=== PATIENT | female | born 1960 | race Caucasian/White ===

== ENCOUNTER 2020-08-12 09:54 | Outpatient (REF) | payer OTHER, SELFPAY ==
[2020-08-12 13:50] LABS: MANUAL DIFF FLAG NO
[2020-08-12 13:56] LABS: Eosinophils Absolute Auto 0.6 X10*3/uL (0.0-0.4); Eosinophils Percent Auto 15.7 % (0-4); Hematocrit 45.4 % (37-47); Hemoglobin 14.7 g/dl (12.0-16.0); Imm Gran Abs Auto 0.02 X10*3/uL (0.00-0.03); Imm Gran Pct Auto 0.5 % (0.0-0.4); Lymphocytes Absolute Auto 1.3 X10*3/uL (1.2-4.9); Lymphocytes Percent Auto 31.9 % (20-40); Mean Corpuscular HGB Conc 32.4 g/dl (31.0-35.0); Mean Corpuscular Hemoglobin 29.9 pg (27.0-33.0); Mean Corpuscular Volume 92.3 fL (80-98); Mean Platelet Volume 9.8 fL (9.4-12.3); Monocytes Absolute Auto 0.4 X10*3/uL (0.1-1.2); Monocytes Percent Auto 8.7 % (2-11); Neutrophils Absolute Auto 1.7 X10*3/uL (2.0-8.3); Neutrophils Percent Auto 42.2 % (45-73); Platelet Count 215 X10*3/uL (160-400); Red Blood Count 4.92 X10*6/uL (4.20-5.50); Red Cell Distribution Width 12.4 % (11.0-16.0)
[2020-08-12 14:21] LABS: Alanine Aminotransferase 46 U/L (0-31); Anion Gap 13 (12-20); Aspartate Amino Transferase 38 U/L (5-31); Blood Urea Nitrogen 17 mg/dL (9-16); Calcium 8.5 mg/dL (8.4-10.2); Carbon Dioxide 25 mmol/L (22-29); Chloride 106 mmol/L (96-108); Cholesterol 305 mg/dL; Estimated Glomerular Filt Rate 57; Glucose Fasting 88 mg/dL (60-99); HDL Cholesterol 62 mg/dL; LDL Cholesterol Calculated 202 mg/dl; Potassium 4.2 mmol/L (3.3-5.1); Sodium 140 mmol/L (135-145); Triglycerides 209 mg/dL
[2020-08-12 14:42] LABS: TSH reflex Free T4 2.24 uIU/mL (0.32-4.0); Vitamin D 25-OH Total 26.3 ng/mL (>30)
== END 2020-08-12 09:55 | disposition home or self-care (01) ==
LOC: HO.10HDL 09:54
PROVIDERS: Visit Provider Internal Medicine
DX: Z00.01 Encounter for general adult medical examination with abnormal findings (principal); F33.42 Major depressive disorder, recurrent, in full remission; F51.01 Primary insomnia; I10 Essential (primary) hypertension; Z78.0 Asymptomatic menopausal state
CPT/HCPCS: 36415; 80048; 80061; 82306; 84443; 84450; 84460; 85025

== ENCOUNTER 2020-10-28 12:10 | Outpatient (REF) | payer OTHER, SELFPAY ==
[2020-10-28 14:30] LABS: Alanine Aminotransferase 25 U/L (0-31); Aspartate Amino Transferase 20 U/L (5-31); Cholesterol 191 mg/dL; HDL Cholesterol 73 mg/dL; LDL Cholesterol Calculated 93 mg/dl; Triglycerides 128 mg/dL
[2020-10-28 14:40] LABS: Vitamin D 25-OH Total 54.8 ng/mL (>30)
== END 2020-10-28 12:11 | disposition home or self-care (01) ==
LOC: HO.HMGCLDS 12:10
PROVIDERS: PCP Internal Medicine; Visit Provider Internal Medicine
DX: E78.2 Mixed hyperlipidemia (principal); E55.9 Vitamin D deficiency, unspecified; Z78.0 Asymptomatic menopausal state
CPT/HCPCS: 36415; 80061; 82306; 82550; 84450; 84460

== ENCOUNTER → 2020-11-25 11:18 | Outpatient (BNVA) | payer OTHER, SELFPAY | PROVIDERS: PCP Internal Medicine; Referring Provider Internal Medicine; Visit Provider Nurse Practitioner ==

== ENCOUNTER 2021-01-02 07:50 | Day surgery (SDC) | payer OTHER, SELFPAY ==
--- NOTE | 2021-01-01 10:36 | P.CONAN_ITS ---
Documented by User: Renu Farr NP 01/01/21 10:37 HPI - Anesthesia Eval Consult details Narrative: 60yo F for Colonoscopy PMFSH Active Problems Active Problems: All Active Problems (Updated 11/25/20 @ 11:27 by HEATHER Raphael) Encounter for screening for malignant neoplasm of colon (Acute) Vaginal cyst (Acute) LGSIL (low grade squamous intraepithelial dysplasia) (Acute) Post-menopause (Acute) Vitamin D deficiency (Acute) Mixed dyslipidemia (Acute) Rosacea (Acute) Menopausal symptoms (Acute) Insomnia (Acute) Depression (Acute) Past Medical History Medical History Depression Insomnia LGSIL (low grade squamous intraepithelial dysplasia) Menopausal symptoms Mixed dyslipidemia Post-menopause Rosacea Shift work sleep disorder Vaginal cyst Vitamin D deficiency Family History Family History Father Dementia CVA (cerebral vascular accident) Maternal Grandmother Diabetes mellitus Paternal Grandfather Diabetes mellitus Breast cancer Paternal Grandmother Breast cancer Diabetes mellitus Surgical History Surgical History H/O tubal ligation History of section History of nasal septoplasty History of rhinoplasty Hx of colonoscopy Social History Social History Alcohol intake: former Patient Tobacco Use Status: Never used Tobacco Use of substances other than those prescribed or required for medical reasons: No Are you DNR?: No Advance Directives: No Advance Directives Information Provided: Yes Meds Allergies Allergy/AdvReac Type Severity Reaction Status Date / Time No Known Allergies Allergy Verified 01/02/21 08:41 Home Medications Medication Instructions Recorded Confirmed Last Taken Type flu vacc [id number] 6mos up(PF) ml IM 05/05/20 08/21/20 Unknown History varicella-zoster glycoE [id number] IM 05/05/20 08/21/20 Unknown History adj(PF) 50 mcg/0.5 mL IM susp, kit Exam Exam Date and Time: January 01, 2021 1036 Pertinent Lab Results Pertinent Lab Results: Laboratory Tests 08/12/20 08/12/20 10:00 10:00 WBC 4.0 L Hgb 14.7 Hct 45.4 Plt Count 215 Sodium 140 Potassium 4.2 Chloride 106 Carbon Dioxide 25 BUN 17 H Creatinine 0.99 Assessment and Plan Assessment Anesthesia Assessment: Chart Reviewed Documented by User: Juli Fontana MD 01/02/21 09:28 [facility] Past Medical History Medical History Depression Insomnia LGSIL (low grade squamous intraepithelial dysplasia) Menopausal symptoms Mixed dyslipidemia Post-menopause Rosacea Shift work sleep disorder Vaginal cyst Vitamin D deficiency Family History Family History Father Dementia CVA (cerebral vascular accident) Maternal Grandmother Diabetes mellitus Paternal Grandfather Diabetes mellitus Breast cancer Paternal Grandmother Breast cancer Diabetes mellitus Surgical History Surgical History H/O tubal ligation History of section History of nasal septoplasty History of rhinoplasty Hx of colonoscopy History of Problems with Anesthesia: No Social History Social History Alcohol intake: former Patient Tobacco Use Status: Never used Tobacco Use of substances other than those prescribed or required for medical reasons: No Are you DNR?: No Advance Directives: No Advance Directives Information Provided: Yes Meds Allergies Allergy/AdvReac Type Severity Reaction Status Date / Time No Known Allergies Allergy Verified 01/02/21 08:41 Home Medications Medication Instructions Recorded Confirmed Last Taken Type flu vacc [id number] 6mos up(PF) ml IM 05/05/20 08/21/20 Unknown History varicella-zoster glycoE [id number] IM 05/05/20 08/21/20 Unknown History adj(PF) 50 mcg/0.5 mL IM susp, kit Exam Airway Mallampati Class: II TM Dist: >3cm Neck ROM: Full Loose/Missing/Broken Teeth: No Heart: RRR Lungs: CTA Assessment and Plan Assessment Anesthesia Assessment: Anesthesia Plan Discussed Final Anesthetic Review History of Problems with Anesthesia: No NPO: Yes ASA Class: II Final Preanesthetic Review: Meds/Allgs Chart Reviewed, Consent Obtained/Reviewed and Anes Risks/Benef Reviewed Patient Risk: Low Procedure Risk: Low Anesthetic Plan Anesthetic Plan: MAC: Disposition: Standard PACU
[2021-01-02] MEDS: Lactated Ringers 1,000 ML 100 ML IVCONT (08:34)
[2021-01-02 08:35] VITALS: BP 133/67; PULSE 64; RESP 18; TEMP 36.7; O2SAT 97; BMI 24.0
--- NOTE | 2021-01-02 08:55 | P.HPSUR_ITS ---
Pre-Procedural Eval Section A Date of Service: 01/02/21 The patient is an INPATIENT: No The History & Physical has been completed within 30 days and I have reviewed it.: No Section B Chief Complaint: Screening Details of Present Illness: Colon cancer screening, abdominal pain, constipation Relevant Family History (Specify if Yes): No Relevant Social History: None Present Medications: see Short Stay Collaborative assessment Medical History: Significant History (Depression Insomnia LGSIL (low grade squamous intraepithelial dysplasia) Menopausal symptoms Mixed dyslipidemia Post- menopause Rosacea Shift work sleep disorder Vaginal cyst Vitamin D deficiency) History of Previous Operations: Relevant previous surgery/procedure and date(s) (H/O tubal ligation History of section History of nasal septoplasty History of rhinoplasty) Allergies: Allergies Allergy/AdvReac Type Severity Reaction Status Date / Time No Known Allergies Allergy Verified 01/02/21 08:41 Review of Systems Sugical H&P ROS: Negative: Constitution, Cardiovascular and Respiratory and Yes, Specify: Gastrointestinal (abdominal pain, constipation) Exam Surgical H&P Exam: Normal: Heart, Normal: Lungs and Normal: Extremities Plan Diagnosis/Plan: Unchanged I have reviewed the history and physical and performed a pertinent physical examination on my patient. No changes have occurred unless specified.
--- NOTE | 2021-01-02 09:29 | PM.OP ---
Brief Operative Note Date of Service: 01/02/21 Pre-op diagnosis: Colon cancer screening, abdominal pain, constipation Post-op diagnosis: other (Colon polyps, diverticulosis, hemorrhoids.) Procedure: COLONOSCOPY TILL CECUM WITH BIOPSIES, SNARE POLYPECTOMY AND SUBMUCOSAL INJECTION Consent: Indications for the procedure and potential complications of bleeding, perforation, reaction to medications and missed diagnosis were discussed with the patient and informed consent was obtained. Instrument: Olympus PCF H 190 L variable stiffness pediatric colonoscope Monitoring: Vital signs and clinical assessment, intermittent blood pressure monitoring, continuous EKG monitoring, Pulse oximetry and Carbon Dioxide monitoring were done throughout the procedure. Colon withdrawl time was 30 minutes. Procedure: The patient was placed in the left lateral decubitis position and pre-procedure medications were administered. After a digital rectal examination of the ano-rectum, the video colonoscope was inserted into the rectum and advanced through the colon to the cecum. The colonoscope was slowly withdrawn in a retrograde panoramic fashion and the colon mucosa was carefully examined including a retroflexed view of the rectum. Findings and interventions are described below. Procedure Difficulty: Colon was long and tortuous and there was spasm and recurrent loop formation. No maneuvers were required Findings: Terminal Ileum: Multiple attempts to intubate the TI were unsuccessful Cecum: Patchy erythema with scatters 2-3 mm aphthoid ulcers in the cecum and proximal AC - random biopsies were obtained. Ascending Colon: A 12-15 mm flat polyp raised with 6 cc of Orise solution and removed with a hot snare. Patchy erythema with scatters 2-3 mm aphthoid ulcers in the cecum and proximal AC - random biopsies were obtained. Transverse Colon: A 3-4 mm sessile polyp removed with cold biopsy. A 10 cms sessile polyp removed with a cold snare. Descending Colon: Moderate divertiuclosis Sigmoid Colon: Two 10-15 mm sessile polyps removed with a hot snare. Moderate diverticulosis Rectum: Normal Ano-rectum: Small internal hemorrhoids and hypertrophied anal papillae Colon preparation: Good after copious irrigation Impression and Post Procedure Diagnosis: Colonoscopy Findings: Five small to medium sized polyps removed Patchy erythema with scatters 2-3 mm aphthoid ulcers in the cecum and proximal AC - random biopsies were obtained from the right and left colon. Moderate diverticulosis seen in the left colon Small hemorrhoids on retroflexed exam. Plan: Await pathology results Patient has an appointment on 01/16/21 in the [facility] with Jessica Galvez NP. Repeat Colonoscopy interval based on path results - in 3-5 years if polyps are adenomatous and 10 years if polyps are hyperplastic. Above findings were reviewed with the patient and colon polyps and diverticulosis handouts were given in the discharge area Surgeon: Raji Stewart MD Anesthesia: MAC (Gaye Sheriff CRNA) Was an Corporate Training Manager used for this Procedure?: Yes Corporate Training Manager: Dorothea Araujo Estimated blood loss (mL): 0 Pathology: other (A. transverse colon polyps B. random right colon biopsies, R/O irritable bowel disease (IBD) C. ascending colon polyp with Orise D. sigmoid polyps E. random left colon, R/O IBD) Condition: stable Disposition: PACU
--- NOTE | 2021-01-02 09:51 | W.PM.OPN ---
Operative Note Operative Note Date of Service: 01/02/21 Narrative: Pre-op diagnosis:?Colon cancer screening, abdominal pain, constipation Post-op diagnosis:?other (Colon polyps, diverticulosis, hemorrhoids.) Procedure:? COLONOSCOPY TILL CECUM WITH BIOPSIES, SNARE POLYPECTOMY AND SUBMUCOSAL INJECTION Consent: Indications for the procedure and potential complications of bleeding, perforation, reaction to medications and missed diagnosis were discussed with the patient and informed consent was obtained. Instrument: Olympus PCF H 190 L variable stiffness pediatric colonoscope Monitoring: Vital signs and clinical assessment, intermittent blood pressure monitoring, continuous EKG monitoring, Pulse oximetry and Carbon Dioxide monitoring were done throughout the procedure. Colon withdrawl time was 30 minutes. Procedure: The patient was placed in the left lateral decubitis position and pre-procedure medications were administered. After a digital rectal examination of the ano-rectum, the video colonoscope was inserted into the rectum and advanced through the colon to the cecum. The colonoscope was slowly withdrawn in a retrograde panoramic fashion and the colon mucosa was carefully examined including a retroflexed view of the rectum. Findings and interventions are described below. Procedure Difficulty:? Colon was long and tortuous and there was spasm and recurrent loop formation.? No maneuvers were required Findings: Terminal Ileum: Multiple attempts to intubate the TI were unsuccessful Cecum:? Patchy erythema with scatters 2-3 mm aphthoid ulcers in the cecum and proximal AC - random biopsies were obtained. Ascending Colon:? A 12-15 mm flat polyp raised with 6 cc of Orise solution and removed with a hot snare.? Patchy erythema with scatters 2-3 mm aphthoid ulcers in the cecum and proximal AC - random biopsies were obtained. Transverse Colon:? A 3-4 mm sessile polyp removed with cold biopsy.? A 10 cms sessile polyp removed with a cold snare. Descending Colon:? Moderate divertiuclosis Sigmoid Colon:? Two 10-15 mm sessile polyps removed with a hot snare. Moderate diverticulosis Rectum:? Normal Ano-rectum:? Small internal hemorrhoids and hypertrophied anal papillae Colon preparation:? Good after copious irrigation Impression and Post Procedure Diagnosis: Colonoscopy Findings: Five small to medium sized polyps removed ?Patchy erythema with scatters 2-3 mm aphthoid ulcers in the cecum and proximal AC - random biopsies were obtained from the right and left colon. Moderate diverticulosis seen in the left colon Small hemorrhoids on retroflexed exam. Plan: Await pathology results Patient has an appointment on 01/16/21 in the GI Clinic with? Jessica Galvez NP. Repeat Colonoscopy interval based on path results - in 3-5 years if polyps are adenomatous and 10 years if polyps are hyperplastic. Handouts on colon polyps and diverticulosis were given in the discharge area Surgeon:?Raji Stewart MD Anesthesia:?MAC (Gaye Sheriff CRNA) Was an Field Crop Farm Worker used for this Procedure?:?Yes Field Crop Farm Worker:?Dorothea Araujo Estimated blood loss (mL):?0 Pathology:?other (A. transverse colon polyps? B. random right colon biopsies, R/O irritable bowel disease (IBD)? C. ascending colon polyp with Orise? D. sigmoid polyps? E. random left colon, R/O IBD) Condition:?stable Disposition:?PACU
[2021-01-02 10:46] VITALS: BP 105/72; PULSE 62; RESP 14; TEMP 36.6; O2SAT 96
[2021-01-02 11:01] VITALS: BP 121/42; PULSE 76; RESP 16; TEMP 36.6; O2SAT 97
== END 2021-01-02 11:36 | disposition home or self-care (01) ==
PROVIDERS: PCP Internal Medicine; Visit Provider Internal Medicine Gastroenterology
PROC: 0DJD8ZZ Inspection of Lower Intestinal Tract, Via Natural or Artificial Opening Endoscopic (ICD-10-PCS; CPT 45378; principal; 2021-01-02 13:20)
DX: Z12.11 Encounter for screening for malignant neoplasm of colon (principal); D12.2 Benign neoplasm of ascending colon; D12.3 Benign neoplasm of transverse colon; D12.5 Benign neoplasm of sigmoid colon; K52.9 Noninfective gastroenteritis and colitis, unspecified; K57.30 Diverticulosis of large intestine without perforation or abscess without bleeding; K64.8 Other hemorrhoids; K56.2 Volvulus; K59.00 Constipation, unspecified
CPT/HCPCS: 45385; 45380; 45381; 88305

== ENCOUNTER → 2021-07-10 09:20 | Outpatient (BNVA) | payer OTHER, SELFPAY | PROVIDERS: PCP Internal Medicine; Referring Provider Internal Medicine; Visit Provider Nurse Practitioner | DX: Z13.89 Encounter for screening for other disorder (principal) ==

== ENCOUNTER 2021-08-18 10:54 | Outpatient (REF) | payer OTHER, SELFPAY ==
[2021-08-18 14:31] LABS: Alanine Aminotransferase 14 U/L (0-31); Anion Gap 10 (12-20); Aspartate Amino Transferase 18 U/L (5-31); Blood Urea Nitrogen 13 mg/dL (9-16); Carbon Dioxide 27 mmol/L (22-29); Chloride 107 mmol/L (96-108); Cholesterol 169 mg/dL; Estimated Glomerular Filt Rate > 60; Glucose Fasting 88 mg/dL (60-99); HDL Cholesterol 67 mg/dL; LDL Cholesterol Calculated 84 mg/dl; Potassium 4.1 mmol/L (3.3-5.1); Sodium 140 mmol/L (135-145); Triglycerides 92 mg/dL
[2021-08-18 14:43] LABS: Vitamin D 25-OH Total 51.9 ng/mL (>30)
== END 2021-08-18 10:55 | disposition home or self-care (01) ==
LOC: HO.HMGCLDS 10:54
PROVIDERS: PCP Internal Medicine; Visit Provider Internal Medicine
DX: Z00.00 Encounter for general adult medical examination without abnormal findings (principal); E55.9 Vitamin D deficiency, unspecified; E78.2 Mixed hyperlipidemia; N95.1 Menopausal and female climacteric states
CPT/HCPCS: 36415; 80048; 80061; 82306; 84450; 84460

== ENCOUNTER 2023-05-24 11:54 | Outpatient (AMB) | payer OTHER, SELFPAY ==
--- NOTE | 2023-05-24 12:19 | A.OFFPC_ITS ---
Vital Signs 05/24/23 12:27 Height 5 ft 4 in Weight 162 lb BMI 27.8 BP 110/70 Blood Pressure Location Rt brachial Pulse 78 Pulse Source Pulse Oximeter Pulse Oximetry (%) 97 Oxygen Delivery Method Room Air Intake Visit Reasons: PHY Allergies Seasonal Allergies Allergy (Intermediate, Verified 05/24/23 12:54) Congestion Medication List - Last Reconciled 05/24/23 by Adenike Alvarez MD bupropion HCl 300 mg PO QAM citalopram 40 mg PO DAILY estradiol 0.5 mg PO DAILY progesterone micronized 100 mg PO BEDTIME rosuvastatin 5 mg PO DAILY 90 days Tobacco use date assessed: 05/24/23 Last assessed Fall Risk: 05/24/23 Dental Screening Dental Screen Date: 05/24/23 Did you have a dental visit in the last 12 months?: Yes Did you have a dental problem in the last 6 months where you did not have access to dental care?: Yes Was dental information given to patient?: Patient has dentist TOM HANCOCK HPI Details 63-year-old lady here today for her phys ical exam. She sees Dr. Mari Nair at [facility], who has been treating her postmenopausal vasomotor symptoms with hormonal therapy. She had cervical cancer screening done at [facility] 10/21/2021 which showed low-grade squamous intraepithelial lesion and positive HPV, overdue for a repeat Pap. Patient states she will call their office and schedule another appointment. Her last mammogram was done 11/17/2021 which showed negative findings. Patient also states that she will call and schedule appointment for her screening mammogram.. Has not had a bone density scan done, will check with her OB if this can be ordered together with her mammogram. She had a screening colonoscopy done by by Dr. Stewart 01/02/2021 with removal of 2 tubular adenoma polyps, repeat screening colonoscopy due December 2023. She has depression stable and controlled on bupropion and citalopram, takes lorazepam as needed. Takes rosuvastatin for hyperlipidemia. Complaining of difficulty with losing weight, has gained approximately 20 lb in the last 2 years, despite being healthy diet and exercising regularly, constantly on the go at work. Wants help with losing weight. [facility] Medical History (Updated 05/25/23 @ 04:04 by Adenike Alvarez MD) Vaginal cyst LGSIL (low grade squamous intraepithelial dysplasia) Post-menopause Vitamin D deficiency Mixed dyslipidemia Rosacea Menopausal symptoms Shift work sleep disorder Insomnia Depression Surgical History Hx of colonoscopy H/O tubal ligation History of nasal septoplasty History of rhinoplasty History of section Family History Father Dementia CVA (cerebral vascular accident) Maternal Grandmother Diabetes mellitus Paternal Grandfather Diabetes mellitus Breast cancer Paternal Grandmother Breast cancer Diabetes mellitus Social History Housing: Apartment Alcohol intake: former Patient Tobacco Use Status: Never used Tobacco e-Cigarette/Vaping Use: Never Used service: No Current occupational status: employed Cognitive needs: No Hearing needs: No Vision needs: No Questionnaire PHQ-9 Over the last 2 weeks, how often have you been bothered by any of the following problems? 1. Little interest or pleasure in doing things: not at all 2. Feeling down, depressed, or hopeless: not at all 3. Trouble falling or staying asleep, or sleeping too much: not at all 4. Feeling tired or having little energy: not at all 5. Poor appetite or overeating: not at all 6. Feeling bad about yourself - or that you are a failure or have let yourself or your family down: not at all 7. Trouble concentrating on things, such as reading the newspaper or watching television: not at all 8. Moving or speaking so slowly that other people could have noticed. Or the opposite - being so fidgety or restless that you have been moving around a lot more than usual: not at all 9. Thoughts that you would be better off or of hurting yourself in some way: not at all Total score: 0 Depression Screening Interpretation: Negative Depression Screening Done: Yes 96466 - PHQ-9 Billing: Yes Source: Developed by Drs. Jt David, Stephanie Aguilar, Estevan Ham and colleagues, with an educational darlene from [employer]. Thrive Questionnaire Date Thrive assessed: 05/24/23 I am a: Patient What is your living situation today?: I have a steady place to live Within the past 12 months, did the food you bought not last and you didn't have the money to get more?: Never true Within the past 12 months, did you worry whether your food would run out before you got money to buy more?: Never true Do you have trouble paying for medicines?: No Do you have trouble getting transportation to medical appointments?: No Do you have trouble paying your heating and electricity bill?: No Do you have trouble taking care of your child, family member or friend?: No Do you have trouble with day-to-day activities such as bathing, preparing meals, shopping, managing finances, etc.?: No Are you currently unemployed and looking for a job?: No Are you interested in more education?: No THRIVE Score: 0 ZURDO-7 AMB Questionnaire ZURDO-7 Date ZURDO - 7 assessed: 05/24/23 Feeling nervous, anxious, or on edge: 1 = Several days Not being able to stop or control worryin = Not at all Worrying too much about different things: 1 = Several days Trouble relaxin = More than half the days Being so restless that it is hard to sit still: 0 = Not at all Becoming easily annoyed or irritable: 0 = Not at all Feeling afraid as if something awful might happen: 0 = Not at all Total ZURDO-7 score (0-4 normal; 5-9 mild; 10-14 moderate; 15-21 severe): 4 Source: Developed by Drs. Jt David, Stpehanie Aguilar, Estevan Ham and colleagues, with an educational darlene from [employer]. ZURDO-7 Assessment Billing ZURDO-7 Assessment Tool: ZURDO-7 Assessment 90794 Review of Systems Const Denies fever(s), Denies night sweats and Denies poor appetite Eyes Reports requires corrective lenses ENT Reports no additional complaints Card Denies chest pain, Denies lightheadedness and Denies dyspnea Resp Denies cough and Denies dyspnea GI Denies abdominal pain, Denies melena, Denies bloating, Denies change in bowel h abits and Denies heartburn Reports no additional complaints Musc Denies joint swelling, Denies muscle cramps and Reports stiffness Skin/Breast Denies breast pain, Denies breast mass, Denies pruritus, Denies lesions and Denies rash Neuro Reports no additional complaints Psych Reports as per HPI Endo Reports no additional complaints Primo/Lymph Reports no additional complaints Aller/Immun Reports no additional complaints Physical exam (Primary Care) Vital Signs: Last Vital Signs Pulse 78 05/24/23 12:27 BP 110/70 05/24/23 12:27 Pulse Ox 97 05/24/23 12:27 Oxygen Delivery Method Room Air 05/24/23 12:27 BMI result Body Mass Index 27.8 Tobacco/Smoking Status: Tobacco use Status Tobacco use date assessed 05/24/23 05/24/23 12:20 Patient Tobacco Use Status Never used Tobacco 05/24/23 12:20 e-Cigarette/Vaping Use Never Used 05/24/23 12:20 PHQ-9: PHQ-9 Score PHQ-9: Total score 0 05/24/23 13:20 Depression Screening Interpretation: Negative Thrive Assessment: Date of Thrive Assessment Date Thrive assessed 05/24/23 05/24/23 12:29 Const Other: Alert oriented x3, no acute distress noted ambulatory with normal gait Orientation/consciousness: patient oriented x3 HENMT Ears: TM's normal bilaterally and EAC's normal General nose exam: Normal external nose present and No nasal discharge present Face and sinus: Yes face symmetric Eyes General: appearance normal, both eyes and all related structures Neck Neck: Yes full ROM, Yes no lymphadenopathy and Yes supple Chest Chest palpation & inspection: normal inspection of the chest Breast/axilla palpation: normal palpation of the breasts Resp Effort & Inspection: normal respiratory effort and able to speak in complete sentences Auscultation: clear to auscultation bilaterally Cardio Other: S1-S2 present regular rate and rhythm Bruits: no abdominal aortic bruits GI Palpation (GI): No Abdominal aortic bruit present, Soft to palpation, nontender, no guarding and no masses Auscultation: normal bowel sounds Other: Goes to [facility] for routine Pap and pelvic exam General: Yes no CVA tenderness Back/Spine/Pelvis Back: no CVA tenderness and No back tenderness Skin Other: Sees dermatology yearly for skin exam General skin exam: no rashes or lesions noted Neuro General: patient oriented x3, gait normal, tone normal, moves all extremities, Normal light touch and pain sensation, no focal motor deficits and CN's II-XI intact bilaterally Extrem General: Yes full ROM, Yes no joint enlargement, Yes no pedal edema, Yes no calf tenderness and Yes normal gait Psych Appearance: grossly normal and well kempt Mental Status: mental status grossly normal Speech and movement: Normal speech and movement present Affect: normal affect Attitude: cooperative Thought process: Normal thought process present Thought content: Normal thought content present Assessment and Plan Assessment & Plan (1) Annual visit for general adult medical examination with abnormal findings: Code(s): Z00.01 - Encounter for general adult medical examination with abnormal findings Plan: Will check appropriate labs. Continue with regular dental visit every 6 months and regular eye exams, at least every 2 years. Take adequate calcium in diet and vitamin-D 3 at 2000 IU per cap once a day, in addition to weight-bearing exercises to help maintain good muscle tone and weight control. Instructed to do self-breast exam, and get yearly mammogram, patient states will schedule appointment. Up-to-date with her screening colonoscopy due again later this year, sees Dr. Stewart . Patient also reminded to call her OB to schedule appointment for repeat Pap/pelvic exam. Up-to-date with her vaccination (2) Mixed dyslipidemia: Code(s): E78.2 - Mixed hyperlipidemia Plan: Fasting lipid panel ordered, currently on rosuvastatin 5 mg daily (3) Vitamin D deficiency: Code(s): E55.9 - Vitamin D deficiency, unspecified Plan: Check vitamin-D low (4) Depression: Code(s): F32.9 - Major depressive disorder, single episode, unspecified Qualifiers: Active/Remission status: in full remission Depression Type: major depressive disorder Major depression recurrence: recurrent Qualified Code(s): F33.42 - Major depressive disorder, recurrent, in full remission Plan: Currently on bupropion and citalopram with depression and anxiety controlled on present treatment (5) Tubular adenoma of colon: Comment: 01/02/[address] Stewart - 2 TA is repeat in 3 years (2023) Code(s): D12.6 - Benign neoplasm of colon, unspecified Plan: Repeat screening colonoscopy due later this year (6) Rosacea: Comment: Seen by dermatology, declines treatment at present Code(s): L71.9 - Rosacea, unspecified Plan: Followed by dermatology for routine skin exam (7) Weight gain: Code(s): R63.5 - Abnormal weight gain Plan: Trial of phentermine 15 mg per tablet to take 1 tablet at least 2 hours after breakfast. Reinforced importance of following a healthy diet and getting regular exercise at least 30 minutes of cardio 3 to 4 times a week follow-up in 4 weeks after starting phentermine (8) Fear of flying: Code(s): F40.243 - Fear of flying Plan: Prescription sent for lorazepam 0.5 mg to take 1 tablet at least 30 minutes to an hour prior to boarding plane Orders: Orders Vitamin D 25-OH Total 05/24/23 E55.9 - Vitamin D deficiency, unspecified, E78.2 - Mixed hyperlipidemia, F32.9 - Major depressive disorder, single episode, unspecified Basic Metabolic Panel Fasting 05/24/23 E55.9 - Vitamin D deficiency, unsp ecified, E78.2 - Mixed hyperlipidemia, F32.9 - Major depressive disorder, single episode, unspecified Medications: New lorazepam 0.5 mg PO DAILY PRN 5 tabs 0RF anxiety with flying phentermine must administer 2 hours after breakfast 15 mg PO DAILY 30 caps 0RF Coding Level of Care Code Est Pt Prev Care 40-64y(31659) Diagnoses Annual visit for general adult medical examination with abnormal findings Z00.01 Mixed dyslipidemia E78.2 Vitamin D deficiency E55.9 Recurrent major depressive disorder, in full remission F33.42 Active/Remission status: in full remission Depression Type: major depressive disorder Major depression recurrence: recurrent Tubular adenoma of colon D12.6 Rosacea L71.9 Weight gain R63.5 Fear of flying F40.243 Additional Codes ZURDO-7 Assessment Billing - ZURDO-7 Assessment Tool: ZURDO-7 Assessment 03529 ([id number])
[2023-05-24 12:27] VITALS: BP 110/70; PULSE 78; O2SAT 97; BMI 27.8
== END 2023-05-24 13:50 | disposition home or self-care (01) ==
PROVIDERS: PCP Internal Medicine; Visit Provider Internal Medicine
DX: Z00.00 Encounter for general adult medical examination without abnormal findings (principal); E78.2 Mixed hyperlipidemia; E55.9 Vitamin D deficiency, unspecified; F33.42 Major depressive disorder, recurrent, in full remission; D12.6 Benign neoplasm of colon, unspecified; L71.9 Rosacea, unspecified; R63.5 Abnormal weight gain; F40.243 Fear of flying
CPT/HCPCS: 99396

== ENCOUNTER 2023-05-26 10:12 | Outpatient (REF) | payer OTHER, SELFPAY ==
[2023-05-26 13:56] LABS: Alanine Aminotransferase 26 U/L (0-31); Anion Gap 10 (12-20); Aspartate Amino Transferase 22 U/L (5-31); Blood Urea Nitrogen 12 mg/dL (9-16); Calcium 8.8 mg/dL (8.4-10.2); Carbon Dioxide 28 mmol/L (22-29); Chloride 107 mmol/L (96-108); Cholesterol 185 mg/dL (<200); Estimated Glomerular Filt Rate 52; Glucose Fasting 86 mg/dL (60-99); HDL Cholesterol 72 mg/dL (>40); LDL Cholesterol Calculated 92 mg/dL (<100); Potassium 3.8 mmol/L (3.3-5.1); Sodium 141 mmol/L (135-145); Triglycerides 109 mg/dL (<150)
[2023-05-26 13:59] LABS: Vitamin D 25-OH Total 75.4 ng/mL (>30)
== END 2023-05-26 10:13 | disposition home or self-care (01) ==
LOC: HO.HMGCLDS 10:12
PROVIDERS: PCP Internal Medicine; Visit Provider Internal Medicine
DX: E78.2 Mixed hyperlipidemia (principal); E55.9 Vitamin D deficiency, unspecified; F32.9 Major depressive disorder, single episode, unspecified
CPT/HCPCS: 36415; 80048; 80061; 82306; 84450; 84460

== ENCOUNTER 2023-09-27 09:49 | Outpatient (AMB) | payer OTHER, SELFPAY ==
[2023-09-27 10:51] VITALS: BP 120/78; PULSE 68; O2SAT 97; BMI 27.6
--- NOTE | 2023-09-27 10:51 | A.OFFPC_ITS ---
Vital Signs 09/27/23 10:51 Height 5 ft 4 in Weight 161 lb BMI 27.6 BP 120/78 Blood Pressure Location Lt brachial Position Sitting Pulse 68 Pulse Source Pulse Oximeter Pulse Oximetry (%) 97 Oxygen Delivery Method Room Air Intake Visit Reasons: weight in Intake Note: F/U weigh in Allergies Seasonal Allergies Allergy (Intermediate, Verified 09/27/23 11:05) Congestion Medication List - Last Reconciled 09/27/23 by Adenike Alvarez MD bupropion HCl XL 300 mg PO QAM citalopram 40 mg PO DAILY estradiol 0.5 mg PO DAILY phentermine 15 mg PO DAILY progesterone micronized 100 mg PO BEDTIME rosuvastatin 5 mg PO DAILY 90 days Tobacco use date assessed: 09/27/23 Fall risk assessment: 2 + Falls in past year Last assessed Fall Risk: 09/27/23 Dental Screening Dental Screen Date: 09/27/23 Did you have a dental visit in the last 12 months?: Yes Did you have a dental problem in the last 6 months where you did not have access to dental care?: No Was dental information given to patient?: Patient has dentist HPI weight in HPI Details 64-year-old lady here today for follow-u p on her weight. She has been prescribed phentermine 15 mg per tablet to be taken once a day in the morning 2 hours after breakfast but patient has been irregularly taking it. No significant weight loss seen. Would like to try it again. She is also here for follow-up on her dyslipidemia. Currently on rosuvastatin 5 mg taken once a day. [facility] Medical History (Updated 02/27/24 @ 01:49 by Adenike Alvarez MD) Overweight (BMI 25.0-29.9) Vaginal cyst LGSIL (low grade squamous intraepithelial dysplasia) Post-menopause Vitamin D deficiency Mixed dyslipidemia Rosacea Menopausal symptoms Shift work sleep disorder Insomnia Depression Surgical History Hx of colonoscopy H/O tubal ligation History of nasal septoplasty History of rhinoplasty History of section Family History Father Dementia CVA (cerebral vascular accident) Maternal Grandmother Diabetes mellitus Paternal Grandfather Diabetes mellitus Breast cancer Paternal Grandmother Breast cancer Diabetes mellitus Social History Housing: Apartment Alcohol intake: former Patient Tobacco Use Status: Never used Tobacco e-Cigarette/Vaping Use: Never Used service: No Current occupational status: employed Cognitive needs: No Hearing needs: No Vision needs: No Questionnaire Thrive Questionnaire Date Thrive assessed: 05/24/23 AUDIT C Alcohol Use Questionnaire (AUDIT-C) 1. How often do you have a drink containing alcohol?: 4 or more times a week 2. How many drinks containing alcohol do you have on a typical day when you are drinking?: 1 or 2 3. How often do you have six or more drinks on one occasion?: Never Total Score: 4 Score Reviewed/Action Taken: Yes ZURDO-7 AMB Questionnaire ZURDO-7 Date ZURDO - 7 assessed: 05/24/23 Source: Developed by Drs. Jt David, Stephanie Aguilar, Estevan Ham and colleagues, with an educational darlene from [employer]. Review of Systems Const All systems reviewed & are unremarkable except as noted in HPI and below Physical exam (Primary Care) Vital Signs: Last Vital Signs Pulse 68 09/27/23 10:51 BP 120/78 09/27/23 10:51 Pulse Ox 97 09/27/23 10:51 Oxygen Delivery Method Room Air 09/27/23 10:51 BMI result Body Mass Index 27.6 Tobacco/Smoking Status: Tobacco use Status Tobacco use date assessed 09/27/23 09/27/23 10:58 Patient Tobacco Use Status Never used Tobacco 09/27/23 10:58 e-Cigarette/Vaping Use Never Used 09/27/23 10:58 Thrive Assessment: Date of Thrive Assessment Date Thrive assessed 05/24/23 09/27/23 10:58 Const Other: Alert oriented x3, no acute distress noted ambulatory with normal gait Orientation/consciousness: patient oriented x3 Neck Neck: Yes full ROM, Yes no lymphadenopathy and Yes supple Resp Effort & Inspection: normal respiratory effort and able to speak in complete sentences Auscultation: clear to auscultation bilaterally Cardio Other: S1-S2 present regular rate and rhythm Bruits: no abdominal aortic bruits GI Palpation (GI): No Abdominal aortic bruit present, Soft to palpation, nontender, no guarding and no masses Auscultation: normal bowel sounds Neuro General: patient oriented x3, gait normal, tone normal, moves all extremities, Normal light touch and pain sensation, no focal motor deficits and CN's II-XI intact bilaterally Coding Level of Care Code Est Pt Level 3 (38532) Diagnoses Mixed dyslipidemia E78.2 Overweight (BMI 25.0-29.9) E66.3
== END 2023-09-27 11:33 | disposition home or self-care (01) ==
PROVIDERS: PCP Internal Medicine; Visit Provider Internal Medicine
DX: E78.2 Mixed hyperlipidemia (principal); E66.3 Overweight
CPT/HCPCS: 99499

== ENCOUNTER 2024-05-29 08:45 | Outpatient (REF) | payer MEDICARE, SELFPAY ==
[2024-05-29 13:59] LABS: Alanine Aminotransferase 61 U/L (0-31); Anion Gap 11 (12-20); Aspartate Amino Transferase 31 U/L (5-31); Blood Urea Nitrogen 15 mg/dL (9-16); Calcium 8.9 mg/dL (8.4-10.2); Carbon Dioxide 28 mmol/L (22-29); Chloride 108 mmol/L (96-108); Cholesterol 183 mg/dL (<200); Estimated Glomerular Filt Rate 58; Glucose Fasting 90 mg/dL (60-99); HDL Cholesterol 65 mg/dL (>40); LDL Cholesterol Calculated 93 mg/dL (<100); Potassium 4.1 mmol/L (3.3-5.1); Sodium 143 mmol/L (135-145); Triglycerides 127 mg/dL (<150)
[2024-05-29 14:15] LABS: Vitamin D 25-OH Total 99.7 ng/mL (>30)
== END 2024-05-29 08:46 | disposition home or self-care (01) ==
LOC: HO.HMGCLDS 08:45
PROVIDERS: PCP Internal Medicine; Visit Provider Internal Medicine
DX: Z00.00 Encounter for general adult medical examination without abnormal findings (principal); Z23 Encounter for immunization; E78.2 Mixed hyperlipidemia; L71.9 Rosacea, unspecified; F33.42 Major depressive disorder, recurrent, in full remission; N95.1 Menopausal and female climacteric states; E66.3 Overweight; E55.9 Vitamin D deficiency, unspecified; Z86.0101 Personal history of adenomatous and serrated colon polyps
CPT/HCPCS: 36415; 80048; 80061; 82306; 84450; 84460; 90471; 90677; 96127; 99212

== ENCOUNTER 2024-05-29 08:45 | Outpatient (AMB) | payer MEDICARE, MEDICAID, SELFPAY ==
[2024-05-29 08:48] VITALS: BP 110/70; PULSE 80; RESP 16; TEMP 36.6; O2SAT 98; BMI 27.1
--- NOTE | 2024-05-29 08:48 | A.OFFVIS_ITS ---
Intake Vital Signs 05/29/24 08:48 Height 5 ft 4 in Weight 158 lb BMI 27.1 BP 110/70 Blood Pressure Location Rt brachial Position Sitting Respiration 16 Pulse 80 Pulse Source Pulse Oximeter Temp 97.9 F Temp Source Oral Pulse Oximetry (%) 98 Oxygen Delivery Method Room Air Intake Visit Reasons: AWV G0438 Intake Note: pt is here for MWV Armoured Car Escort Required: No Accompanied by: Self / Same As Patient Allergies Seasonal Allergies Allergy (Intermediate, Verified 05/29/24 09:07) Congestion Medication List - Last Reconciled 05/29/24 by Adenike Alvarez MD bupropion HCl XL 300 mg PO QAM cholecalciferol (vitamin D3) 25 mcg PO DAILY citalopram 40 mg PO DAILY estradiol 0.5 mg PO DAILY progesterone micronized 100 mg PO BEDTIME rosuvastatin 5 mg PO DAILY 90 days Do you need a note to return to daycare/school/sports/work: No HPI AWV G0438 HPI Details IPPE ? 64 year old with past medical history significant for mixed dyslipidemia, depression, vasomotor symptoms due to menopause, with history of adenomatous polyp of colon seen on previous colonoscopy screenings, presents today for her ?Initial Preventive Physical Exam.? Her last fasting lipid panel and fasting blood sugar drawn 05/26/2023 showed results within normal limits. She is due for repeat screening. Last screening mammogram done at [facility] was 11/17/2021 with benign findings, overdue for her repeat screening. She has never had a bone density scan. Last Pap smear was done at [facility] in 2021 She is overdue to get a repeat colonoscopy procedure done last 1 was done 01/02/[address] Stewart with removal of 2 tubular adenoma polyps. She is up-to-date with her flu vaccine COVID booster and Shingrix vaccination but is due for her Prevnar 20, which was given on today's. .? Medical / Social History Reviewed? Past Medical History ?Yes . ? [place] of Care / Care Team list updated ?Yes . ? Surgical/Hospitalization History ?Yes . ? Current Medications (including OTC and supplements) ?Yes . ? Family History ?Yes . ? Tobacco Control form ?Yes . ? AUDIT-C (Alcohol use) form ?Yes . ? Illicit drug use in Social History ?Yes . ? Current diagnosis of depression? ?yes, stable and controlled on bupropion HCL XL a 300 mg in the morning and citalopram 40 mg daily. ? Appropriate PHQ2/PHQ9 completed ?Yes . ? Data entered by ?[employer]arer and reviewed by provider ? Fall Risk ? Fall History? Have you had any falls with injury in the past year? ?No . ? Have you had two or more falls in the past year? ?No . ? Fall Risk Assessment: ?No falls in the past year . ? HRA filled out by the patient, reviewed by Provider and scanned. ? IPPE ? Balance? Romberg ?negative. ? Tandem walk ?Yes . ? Walk and Turn ?Yes, has contact lenses and glasses . ? Rise from sit to stand ?Yes . ?Vision? Corrective lens ?Yes ? Vision screen ? Up-to-date ?Hearing? Whisper test ?pass . ?Written Plan?Completed. See Patient Documents.? HPI Comments History of Present Illness Details She is also here for follow-up on her hyperlipidemia. Currently takes rosuvastatin 5 mg daily denies any myalgia or weakness with taking the medication. [facility] Medical History (Updated 05/29/24 @ 15:03 by Adenike Alvarez MD) Vasomotor symptoms due to menopause History of adenomatous polyp of colon Overweight (BMI 25.0-29.9) Vaginal cyst LGSIL (low grade squamous intraepithelial dysplasia) Post-menopause Vitamin D deficiency Mixed dyslipidemia Rosacea Menopausal symptoms Shift work sleep disorder Insomnia Depression Surgical History (Updated 05/29/24 @ 11:01 by Adenike Alvarez MD) History of colposcopy with cervical biopsy Hx of colonoscopy H/O tubal ligation History of nasal septoplasty History of rhinoplasty History of section Family History Father Dementia CVA (cerebral vascular accident) Maternal Grandmother Diabetes mellitus Paternal Grandfather Diabetes mellitus Breast cancer Paternal Grandmother Breast cancer Diabetes mellitus Social History Housing: Apartment Alcohol intake: former Patient Tobacco Use Status: Never used Tobacco e-Cigarette/Vaping Use: Never Used service: No Current occupational status: employed Cognitive needs: No Hearing needs: No Vision needs: No Questionnaire Medicare Wellness Checkup What [age] What gender do you identify with?: female During the past 4 weeks, how much have you been bothered by emotional problems such as feeling anxious, depressed, irritable, sad or downhearted, and blue?: not at all During the past 4 weeks, has your physical & emotional health limited your social activities with family, friends, neighbors, or groups?: not at all During the past 4 weeks, how much bodily pain have you generally had?: no pain During the past 4 weeks, was someone available to help you if you needed & wanted help?: yes, as much as I wanted During the past 4 weeks, what was the hardest physical activity you could do for at least 2 minutes?: very heavy Can you get to places out of walking distance without help? (For eg., can you travel alone on buses, taxis or drive your car?): Yes Can you go shopping for groceries or clothes without someone's help?: Yes Can you prepare your own meals?: Yes Can you do your housework without help?: Yes Because of any health problems, do you need the help of another person with your personal care needs such as eating, bathing, dressing or getting around the house?: No Can you handle your own money without help?: Yes During the past 4 weeks, how would you rate your health in general?: very good During the past 4 weeks how have things been going for you?: pretty well Are you having difficulties driving your car?: no Do you always fasten your seat belt when you are in a car?: yes, usually During past 4 weeks, have you been bothered by the following: never: Falling or dizzy when standing up, Sexual problems?, Trouble eating well?, Teeth or denture problems?, Problems using the telephone? and Tiredness or fatigue? Have you fallen 2 or more times in the past year?: No Are you afraid of falling?: No Are you a smoker?: no During the past 4 weeks, how many drinks of wine, beer, or other alcoholic beverages did you have?: no alcohol at all Do you exercise for about 20 minutes 3 or more times a week?: yes, most of the time Have you been given information to help with the following?: no: Hazards in your house that might hurt you? and no: Keeping track of your medications? How often do you have trouble taking medicines the way you have been told to take them?: I always take medicine as prescribed How confident are you that you can control & manage most of your health problems?: very confident What is your race?: White Mini Mental State Exam (MMSE) Orientation What is the (year) (season) (date) (day) (month)?: year (2024), season (winter), date (05/29/24), day (Tuesday) and month (May) Where are we (state) (county) (town or city) (hospital) (floor)?: state ([place]), county ([place]), town or city ([place]) and hospital/clinic ([facility]) Score Score: 9 Activity of Daily Living Bathing - sponge bath, tub bath or shower: receives no assistance (gets in/out by self, if usual bathing means Dressing - getting clothes from closets & drawers, including inner/outer garments & fasteners.: gets clothes & gets completely dressed without help Toileting - going to the 'toilet room' for urine/bowel elimination & cleaning self/arranging clothes: goes to toilet room, cleans self, arranges clothes wit hout help Transfer: moves in & out of bed and chair without help (may use support object) Continence: controls urination/bowel movements completely by self Feeding: feeds self without help Total Score: 0 Information obtained from: patient Using telephone: independent Traveling: independent Shopping: independent Preparing meals: independent Housework: independent Taking medicine: independent Managing money: independent PHQ-9 Over the last 2 weeks, how often have you been bothered by any of the following problems? 1. Little interest or pleasure in doing things: not at all 2. Feeling down, depressed, or hopeless: not at all 3. Trouble falling or staying asleep, or sleeping too much: nearly every day 4. Feeling tired or having little energy: several days 5. Poor appetite or overeating: not at all 6. Feeling bad about yourself - or that you are a failure or have let yourself or your family down: not at all 7. Trouble concentrating on things, such as reading the newspaper or watching television: not at all 8. Moving or speaking so slowly that other people could have noticed. Or the opposite - being so fidgety or restless that you have been moving around a lot more than usual: not at all 9. Thoughts that you would be better off or of hurting yourself in some way: not at all Total score: 4 Depression Screening Interpretation: Negative Depression Screening Done: Yes 23958 - PHQ-9 Billing: Yes Source: Developed by Drs. Jt David, Stephanie Aguilar, Estevan Ham and colleagues, with an educational darlene from [employer]. ZURDO-7 AMB Questionnaire ZURDO-7 Date ZURDO - 7 assessed: 05/29/24 Feeling nervous, anxious, or on edge: 0 = Not at all Not being able to stop or control worryin = Not at all Worrying too much about different things: 0 = Not at all Trouble relaxin = Not at all Being so restless that it is hard to sit still: 0 = Not at all Becoming easily annoyed or irritable: 0 = Not at all Feeling afraid as if something awful might happen: 0 = Not at all Total ZURDO-7 score (0-4 normal; 5-9 mild; 10-14 moderate; 15-21 severe): 0 Source: Developed by Drs. Jt David, Stephanie Aguilar, Estevan Ham and colleagues, with an educational darlene from [employer]. ZURDO-7 Assessment Billing ZURDO-7 Assessment Tool: ZURDO-7 Assessment 37642 Review of Systems Const Denies fever(s), Denies night sweats and Denies poor appetite Eyes Reports requires corrective lenses ENT Reports no additional complaints Card Denies chest pain, Denies lightheadedness and Denies dyspnea Resp Denies cough and Denies dyspnea GI Denies abdominal pain, Denies melena, Denies bloating, Denies change in bowel habits and Denies heartburn Details: Goes to [facility], sees Dr. Mari Forde Reports no additional complaints Musc Denies joint swelling, Denies muscle cramps and Reports stiffness Skin/Breast Denies breast pain, Denies breast mass, Denies lesions and Denies rash Neuro Reports no additional complaints Psych Reports no additional complaints Endo Reports no additional complaints Primo/Lymph Reports no additional complaints Aller/Immun Reports no additional complaints Physical Exam Vital Signs: Last Vital Signs Temp 97.9 F 05/29/24 08:48 Pulse 80 05/29/24 08:48 Resp 16 05/29/24 08:48 BP 110/70 05/29/24 08:48 Pulse Ox 98 05/29/24 08:48 Oxygen Delivery Method Room Air 05/29/24 08:48 BMI result Body Mass Index 27.1 Const General: no acute distress Orientation/consciousness: patient oriented x3 Eyes General: appearance normal, both eyes and all related structures Resp Effort & Inspection: normal respiratory effort Auscultation: clear to auscultation bilaterally Cardio Rate: regular rate Rhythm: regular rhythm Heart sounds: S1 normal heart sound present and S2 normal heart sound present Neuro General: patient oriented x3 and gait normal Psych Affect: normal affect Immunizations pneumoc 20-brina conj-dip cr(PF) 0.5 mL IM syringe Performing Provider: Adenike Alvarez MD Performing Location: [facility] [place] [facility] Administered by: GRACE Lujan on 05/29/24 09:41 Dose Route Admin Location Dispensed Lot Number Expiration Date [facility] Upper Doubler 0.5 mL IM Left Deltoid 0.5 mL [id number] 08/22/25 [id number] Imperator/re3D VIS Given Date VIS Provided VIS Publication Date 05/29/24 Single Vaccine 21 Eligibility Eligibility Date Funding Source Not [facility] Eligible 05/29/24 Private Assessment & Plan Assessment & Plan (1) Mixed dyslipidemia: Code(s): E78.2 - Mixed hyperlipidemia Plan: Fasting lipid panel ordered today currently on rosuvastatin 5 mg daily. Reinforced importance of following a low-cholesterol diet and getting regular exercise (2) History of adenomatous polyp of colon: Comment: 01/02/[address] Stewart - 2 TA is repeat in 3 years (2023) Code(s): Z86.0101 - Personal history of adenomatous and serrated colon polyps Plan: GI referral ordered for her repeat colonoscopy, overdue (3) Rosacea: Comment: Seen by dermatology, declines treatment at present Code(s): L71.9 - Rosacea, unspecified Plan: Followed by [facility] (4) Depression: Comment: Followed by [facility] Code(s): F32.9 - Major depressive disorder, single episode, unspecified Qualifiers: Active/Remission status: in full remission Depression Type: major depressive disorder Major depression recurrence: recurrent Qualified Code(s): F33.42 - Major depressive disorder, recurrent, in full remission Plan: Currently followed by psychiatry (5) Encounter for initial annual wellness visit (AWV) in Medicare patient: Code(s): Z00.00 - Encounter for general adult medical examination without abnormal findings Plan: Medical wellness checklist reviewed, discussed with patient and updated. She is up-to-date with her vaccines, Prevnar 20 given today referred for her repeat co lonoscopy, screening mammogram and bone density ordered patient currently followed at [facility] by Dr. Novak for her routine Pap and pelvic exam and she sees Dr. Ordonez for her routine eye exam (6) Vasomotor symptoms due to menopause: Comment: Followed by Dr. Mari Nair at [facility] Code(s): N95.1 - Menopausal and female climacteric states Plan: Currently on HRT treatment ordered by her OBGYN (7) Overweight (BMI 25.0-29.9): Code(s): E66.3 - Overweight Plan: Stressed importance of adhering to healthy eating habits and getting regular exercise at least 15 minutes cardio 3 to 4 times a week Orders: Orders XR DEXA axial skeleton Today Z12.31 - Encounter for screening mammogram for malignant neoplasm of breast, Z13.820 - Encounter for screening for osteoporosis, Z78.0 - Asymptomatic menopausal state Pneumococcal 20 Immunization Today Z23 - Encounter for immunization Alanine Aminotransferase Today E55.9 - Vitamin D deficiency, unspecified, E66.3 - Overweight, E78.2 - Mixed hyperlipidemia Aspartate Amino Transferase Today E55.9 - Vitamin D deficiency, unspecified, E66.3 - Overweight, E78.2 - Mixed hyperlipidemia Lipid Panel Today E55.9 - Vitamin D deficiency, unspecified, E66.3 - Overweight, E78.2 - Mixed hyperlipidemia Vitamin D 25-OH Total Today E55.9 - Vitamin D deficiency, unspecified, E66.3 - Overweight, E78.2 - Mixed hyperlipidemia Basic Metabolic Panel Fasting Today E55.9 - Vitamin D deficiency, unspecified, E66.3 - Overweight, E78.2 - Mixed hyperlipidemia MM tomosynthesis screening BI Today Z12.31 - Encounter for screening mammogram for malignant neoplasm of breast, Z13.820 - Encounter for screening for osteoporosis, Z78.0 - Asymptomatic menopausal state, Z86.0101 - Personal history of adenomatous and serrated colon polyps Referrals Gastroenterology Referral Z86.0101 - Personal history of adenomatous and serrated colon polyps Quality Reporting (2019) Depression/Bipolar (159/160/161/177) PHQ-9: Total score: 4 Coding Level of Care Code Medicare First (G0438) Est Pt Level 4 (70545) Diagnoses Mixed dyslipidemia E78.2 History of adenomatous polyp of colon Z86.0101 Cathleen L71.9 Recurrent major depressive disorder, in full remission F33.42 Active/Remission status: in full remission Depression Type: major depressive disorder Major depression recurrence: recurrent Encounter for initial annual wellness visit (AWV) in Medicare patient Z00.00 Vasomotor symptoms due to menopause N95.1 Overweight (BMI 25.0-29.9) E66.3 Additional Codes ZURDO-7 Assessment Billing - ZURDO-7 Assessment Tool: ZURDO-7 Assessment 27794 ([id number]) PHQ-9 - 45408 - PHQ-9 Billing: Yes ([id number]) Advance Care Planning Advance Care Planning discussion: Declined forms (Patient would like to bring forms back to family and discuss it with them before completing)
--- OUTSIDE RECORDS SUMMARY | 2024-05-29 09:00 | XMS_ITS | Data Portability ---
Author Organization [facility], [address] Address [address] [place] [address] Care Team Providers Care Industrial Cleaner Name Role Phone ANGELY GAN Primary Care Provider [phone] Assessment No assessment recorded. Plan of Treatment Reminders Order Date Submit Date Provider Last Modified By Organization Details Last Modified Time Details Appointments None recorded. Lab rapid flu (A+B) 2023 024 [facility], [address] [place], [address], 4 11:00:40 SARS CoV 2 (COVID-19) Ag, QL, IA, upper respiratory specimen 2023 024 [facility], [address] [place], [address], 4 11:00:39 rapid strep group A, throat 2023 024 [facility] [address] [place], [address], 4 11:00:42 streptococc us group A, culture, throat 2023 024 [place] [facility] ([facility], [address] [place] [address], [place], [address], 4 06:08:36 Referral orthopedic surgeon referral 2022 023 [email or web address] Not available 3 10:24:37 Procedures None recorded. Surgeries None recorded. Imaging XR, ankle, 3 or more view - Tenderness over medial malleolus following fall r/o fx 2023 024 [facility], [address] [place], [address], 4 09:24:35 XR, foot, 3 or more view - Further eval on L foot 2023 024 [email or web address] [facility], [address] [place], [address], 4 08:27:48 Medication Orders doxycycline hyclate 100 mg capsule 2021 023 [facility] #1972, [address] [place], [address], 3 09:53:56 prednisone 20 mg tablet 2021 023 [facility]1972, [address] [place], [address], 3 09:53:59 promethazin e-DM 6.25 mg-15 mg/5 mL oral syrup 2021 023 [facility]1972, [address] [place], [address], 3 09:54:08 albuterol sulfate HFA 90 mcg/actuati on aerosol inhaler 2021 022 [facility] #1972, [address] [place], [address], 2 08:55:58 naproxen 500 mg tablet 2022 023 [facility] #0447, [address] [place] [address], [address], 4 09:43:11 diclofenac 1 % topical gel 2022 023 [email or web address] [facility] #0447, [address] [place], [address], 4 09:43:15 ketorolac 60 mg/2 mL intramuscul ar solution 2023 024 [email or web address] [facility] [address] [place] [address], [address], 4 09:59:29 Tamiflu 75 mg capsule 2023 024 [facility] [address] [place] [address], [address], 4 11:00:40 albuterol sulfate HFA 90 mcg/actuati on aerosol inhaler 2023 024 [facility] [address] [place] [address], [address], 4 11:00:40 prednisone 20 mg tablet 2023 024 [facility] [address] [place] [address], [address], 4 11:00:41 Allergy Relief (fluticason e) 50 mcg/actuati on nasal spray,suspe nsion 2023 024 [email or web address] [facility] [address] [place] [address], [address], 4 12:35:15 promethazin e-DM 6.25 mg-15 mg/5 mL oral syrup 2023 024 [facility] [address] [place] [address], [address], 4 11:00:40 Patient TargetsNo targets recorded. Patient Instructions Encounter Date Encounter Id Patient Instructions Last Modified By Organization Details Last Modified Time 04/11/2022 [id number] cough: care instructions [email or web address] 13 Not available 04/11/2022 08:55:54 You should follow-up with your PCP in days, or at any time if your condition does not improve or worsens. Any acute change should prompt a visit to the nearest Emergency Department. [email or web address] 13 Not available 04/11/2022 09:09:45 02/09/2023 [id number] knee pain or injury: care instructions [email or web address] Not available 02/09/2023 10:23:52 06/19/2023 [id number] Patient instruct ed on worsening signs and symptoms that would require further evaluation by ED or PCP such as fever of 101.0 or greater, congestion accompanied with coughing, vomiting, diarrhea, abdominal pain, decreased oral intake, lethargy, or other new symptom(s) experienced not discussed during this visit. Use humidifier and ensure good hydration. If you experience new concerning symptoms, shortness of breath, respiratory distress, or chest pain go to the ER. Use the medications prescribed. May use Decongestants if tolerated and no history of elevated blood pressure or Diabetes. Use saline nasal saline and Flonase daily for1 week. You may use tylenol for pain/fever. Do not take prednisone with Ibuprofen. Get some extra rest. When should you call for help? Call anytime you think you may need emergency care. For example, call if: You have severe trouble breathing. Call your doctor now or seek immediate medical care if: You have new or worse trouble breathing. You cough up dark brown or bloody mucus (sputum). You have a new or higher fever. You have a new rash. Watch closely for changes in your health, and be sure to contact your doctor if: You cough more deeply or more often, especially if you notice more mucus or a change in the color of your mucus. You are not getting better as expected. [email or web address] Not available 06/19/2023 11:00:15 Reason for Referral Orthopedic Surgeon Referral for Pain of left knee joint Referring Physician: Farnaz Leger, Urgent Care, Encounter Date: 02/09/2023 Results Created Date Observation Date Name Description Value Unit Range Abnormal Flag Note LastModifiedBy Organization Detail LastModifiedTime 06/19/19 24 06/22/2023 BETA STREP GP A CULTU RE beta strep gp A culture NEGATI VE Refer ence Range : Negat divya Not Available [facility] ([facility]) [address] [facility], [place], [address], 06/22/2023 06:08:36 06/19/19 24 06/19/2023 SARS CoV 2 (COVI D-19) Ag, QL, IA, upper respi rator y speci men Unknown Analyte negati ve Not Available [address] [place], [address], 06/19/2023 10:39:24 06/19/19 24 06/19/2023 SARS CoV 2 (COVI D-19) Ag, QL, IA, upper respi rator y speci men Unknown Analyte yes Not Available [address] [place], [address], 06/19/2023 10:39:24 06/19/19 24 06/19/2023 rapid strep group A, throa t Unknown Analyte negati ve Not Available [address] [place], [address], 06/19/2023 10:39:35 06/19/19 24 06/19/2023 rapid strep group A, throa t Unknown Analyte yes Not Available [address] [place], [address], 06/19/2023 10:39:35 06/19/19 24 06/19/2023 rapid flu (A+B) Unknown Analyte positi ve Not Available [address] [place], [address], 06/19/2023 10:39:29 06/19/19 24 06/19/2023 rapid flu (A+B) Unknown Analyte negati ve Not Available [address] [place], [address], 06/19/2023 10:39:29 06/19/19 24 06/19/2023 rapid flu (A+B) Unknown Analyte yes Not Available [facility] [address] [place] [address], [address], 06/19/2023 10:39:29 06/07/19 24 06/06/2023 XR, ankle , 3 or more view No observ ation record ed. [facility] [address] [place], [address], 06/07/2023 09:34:22 Result Notes None recorded. Problems Name Problem SNOMED Code Status Onset Date Resolution Date Notes Provider Name and Address Organization Details Recorded Time Depressive disorder 08595260 Active 2021 ANISHA hansen, [place] - [facility] 2 08:35:34 Hyperlipidemia 13312676 Active 2021 ANISHA hansen, [place] - [facility] 2 08:35:41 Problem Notes None recorded. Procedures Surgical History None recorded. Imaging Results Imaging Date Name Status LastModified by Organiz ation Details LastModified Time 06/06/2023 XR, ankle, 3 or more view completed [facility] [address] [place], [address], 06/07/2023 09:34:22 Procedure Notes None recorded. Medical Equipment None Reported. Allergies No known drug allergies Medications Name Sig Start Date Stop Date Status Note LastModified by Organization Details LastModified Time promethaz ine-DM 6.25 mg-15 mg/5 mL oral syrup Take 10 mL every 8 hours by oral route as needed for 7 days. 2023 active Not Available Not Available Not Avai lable doxycycli ne hyclate 100 mg capsule Take 1 capsule twice a day by oral route for 10 days. 02/09 completed Not Available Not Available Not Available prednison e 20 mg tablet Take 2 tablets every day by oral route in the morning for 4 days. 2023 active Not Available Not Available Not Avai lable Tamiflu 75 mg capsule Take 1 capsule twice a day by oral route with meal(s) for 5 days. 2023 active Not Available Not Available Not Avai lable albuterol sulfate HFA 90 mcg/actua tion aerosol inhaler INHALE 2 PUFFS EVERY 4 TO 6 HOURS NEEDED FOR 7 DAYS active Not Available Not Available No t Available ketorolac 60 mg/2 mL intramusc ular solution 2mL IM in clinic today 2023 active Billable units is multiple s of 15mg up to 4 units. Units are not the dose. Not Available Not Available Not Available fluticaso ne propionat e 50 mcg/actua tion nasal spray,kristi pension SPRAY 1 SPRAY EVERY DAY BY INTRANAS AL ROUTE DIRECTED FOR 90 DAYS. 2023 active Not Available Not Available Not Avai lable naproxen 500 mg tablet Take 1 tablet twice a day by oral route for 10 days. 06/06 completed Not Available Not Available Not Available amoxicill in 875 mg-potass ium clavulana te 125 mg tablet Take 1 tablet every 12 hours by oral route for 10 days. 2023 active Not Available Not Available Not Avai lable citalopra m active Not Available Not Available Not Available ramipril 02/09 completed Not Available Not Available Not Available Vitamin D3 active Not Available Not Available Not Available Wellbutri n SR active Not Available Not Available Not Available rosuvasta tin active Not Available Not Available Not Available diclofena c 1 % topical gel APPLY 2 G 3 TIMES A DAY BY TOPICAL ROUTE NEEDED FOR 10 DAYS. 06/06 completed Not Available Not Available Not Available Vitals Date Recorded Body height Body mass index (BMI) Body weight Pain severity - 0-10 verbal numeric rating [Score] - Reported Heart rate Body temperature Respiratory rate Oxygen saturation Oxygen saturation in Arterial blood by Pulse oximetry Systolic blood pressure Diastolic blood pressure Provider Name and Address Organization Details Last Updated DateTime 2 162.56 cm 24.9 kg/m2 27135.8 9 g 8 69 /min 98.1 [degF] 20 /min 97 % 97 % 120 mm[Hg] 75 mm[Hg] ANISHA REYNOSO - [facility] 2 08:37:22 Date Recorded Body height Body mass index (BMI) Body weight Pain severity - 0-10 verbal numeric rating [Score] - Reported Respiratory rate Oxygen saturation Oxygen saturation in Arterial blood by Pulse oximetry Heart rate Body temperature Systolic blood pressure Diastolic blood pressure Provider Name and Address Organization Details Last Updated DateTime 3 162.56 cm 24.9 kg/m2 58016.8 9 g 7 19 /min 97 % 97 % 81 /min 98.1 [degF] 121 mm[Hg] 70 mm[Hg] ALETHA VALENTIN PA - [facility] 3 09:56:58 Date Recorded Body height Body mass index (BMI) Body weight Pain severity - 0-10 verbal numeric rating [Score] - Reported Respiratory rate Body temperature Oxygen saturation Oxygen saturation in Arterial blood by Pulse oximetry Heart rate Systolic blood pressure Diastolic blood pressure Provider Name and Address Organization Details Last Updated DateTime 4 162.56 cm 27.8 kg/m2 56977.9 6 g 9 18 /min 97.1 [degF] 97 % 97 % 68 /min 119 mm[Hg] 80 mm[Hg] JUNIE KWOK PA - [facility] 4 09:45:08 Date Recorded Body height Body mass index (BMI) Body weight Body temperature Respiratory rate Oxygen saturation Oxygen saturation in Arterial blood by Pulse oximetry Heart rate Systolic blood pressure Diastolic blood pressure Provider Name and Address Organization Details Last Updated DateTime 4 162.56 cm 27.8 kg/m2 85800.9 6 g 98.2 [degF] 18 /min 98 % 98 % 77 /min 125 mm[Hg] 79 mm[Hg] Velvet Greenberg PA - [facility] 4 10:41:02 Social History Question Answer Notes LastModified by Organizat ion Details LastModified Time Tobacco Smoking Status Never Smoker ALETHA hansen PA - [facility] 02/09/2023 09:54:52 What Is Your Level Of Alcohol Consumption? Occasional Information not available 04/11/2022 Are You Currently Employed? Yes Information not available 02/09/2023 Have You Had A Flu Shot This Season? Yes [email or web address] Information not available 06/19/2023 What Was The Date Of Your Most Recent Tobacco Screening? 06/19/2023 Information not available 06/19/2023 Do You Use Any Illicit Or Recreational Drugs? No Information not available 04/11/2022 Have You Recently Traveled Abroad? No Information not available 04/11/2022 Are You Currently In School? No Information not available 02/09/2023 Do You Or Have You Ever Used Any Other Forms Of Tobacco Or Nicotine? No Information not available 04/11/2022 Sex: Unknown Functional Status None recorded. Mental Status None recorded. Family History Relationship Description Onset Age of this Age Resolved Age Notes LastModified by Organization Details LastModified Time Father No current problems or disability Not available 04/11 08:35:43 Mother No current problems or disability Not available 04/11 08:35:43 Medical History No medical history recorded. Gynecological History Statement/Question Response Date of LMP Is there any chance of ? No LMP N/A Obstetrics History GPAL:G 0 P 0 0 0 0 Immunizations Vaccine Type Date Status Note Provider Nam e and Address Organization Details Recorded Time COVID-19, mRNA, LNP-S, PF, mikey-sucrose, 30 mcg/0.3 mL 3 completed Velvet Greenberg null, PA - [facility] 06/19/2023 10:38:05 pneumococcal polysaccharide PPV23 3 completed Velvet Greenberg null, PA - [facility] 06/19/2023 10:38:05 zoster live 0 completed Velvet Greenberg null, PA - [facility] 06/19/2023 10:38:05 Influenza, split virus, quadrivalent, PF 3 completed Velvet Greenberg null, PA - [facility] 06/19/2023 10:38:05 Influenza, split virus, quadrivalent, PF 0 completed ANISHA ANDERSON null, PA - [facility] 04/11/2022 08:34:24 zoster recombinant 1 completed ANISHA ANDERSON null, PA - [facility] 04/11/2022 08:34:24 COVID-19, mRNA, LNP-S, bivalent, PF, 30 mcg/0.3 mL dose 2 completed ANISHA DESMITH null, PA - [facility] 04/11/2022 08:34:24 Influenza, split virus, quadrivalent, PF 2 completed ANISHA DESMITH null, PA - [facility] 04/11/2022 08:34:24 zoster recombinant 0 completed ANISHA DESMITH null, PA - [facility] 04/11/2022 08:34:24 COVID-19, mRNA, LNP-S, PF, 30 mcg/0.3 mL dose 1 completed ANISHA DESMITH null, PA - [facility] 04/11/2022 08:34:24 COVID-19, mRNA, LNP-S, PF, 30 mcg/0.3 mL dose 1 completed ANISHA DESMITH null, PA - [facility] 04/11/2022 08:34:24 Influenza, MDCK, quadrivalent, PF 2 completed ANISHA DESMITH null, PA - [facility] 04/11/2022 08:34:24 COVID-19, mRNA, LNP-S, PF, 30 mcg/0.3 mL dose 2 completed ANISHA DESMITH null, PA - [facility] 04/11/2022 08:34:24 Past Encounters Encounter ID Performer Location Encounter Start Date Encounter Closed Date Diagnosis/Indication Diagnosis SNOMED-CT Code Diagnosis ICD10 Code Diagnosis Note [id number] [facility] [address] 03/10/2021 08:12:58 03/10/2021 10:32:16 [id number] [address] [place] [address] 08/30/2018 11:29:01 08/30/2018 13:03:20 [id number] Mago [place]guyen [place] [facility] [address] [address] 04/11/2022 08:23:20 04/11/2022 09:02:34 Bronchitis 49957027 J40 Increase oral fluids, rest while you are ill, ER if needed for worsening symptoms [id number] [place] [address] [place] [address] 02/09/2023 09:03:21 02/09/2023 10:24:37 Pain of left knee joint [id number] 43964 M25.562 There was no Xray available today.Pain is over 6 weeks and no injury, but will need XraySwelli ng indicates a likely Knee Effusion and will need to see ORTHO Possible Osteoarthr itis, Popliteal cyst with rupture versus meniscal injury.REf erral made to Ortho today [id number] EDGARDO Valentin [address] [place] [address] 06/06/2023 09:25:54 06/06/2023 10:04:10 Injury of left ankle [id number] S99.912A Based on your presentati on and exam, you are diagnosed with an ankle sprain. You are being sent for an x-ray. If the read comes back showing a fracture, we will contact you immediatel y. My suggestion s for this condition include:1. Ice2. Elevate3. Rest4. Make sure you stretch your ankle regularly for the next 1-2 weeks5. Take Ibuprofen or Tylenol if you do not have any allergies to these medication s. If you take a blood thinner you should not take NSAIDS like Ibuprofen. 6. After 3 days of icing - I would switch to heat - this will help reabsorb any bruising or swelling. If you are still having pain after 7-10 days, I would suggest that you follow up with our office again or schedule and appointmen t with an orthopedis t. I would be seen more urgently if you develop any of the following symptoms.1 . Numbness2. Cold Extremitie s3. Worsening Pain4. Skin Redness5. Calf Swelling Thank you for using [employer] , please contact our office if you have any questions or concerns. [id number] [place] [address] [place] [address] 06/19/2023 10:30:15 06/19/2023 11:01:57 Exposure to SARS-CoV-2 638622371 Z20.822 Influenza caused by Influenza A virus 485815440 J09.X2 Based on your Presentati on and Exam you are being diagnosed with Influenza. Your rapid Flu test was {{Negative POSITIVE* }} Influenza is caused by a virus that is highly contagious . If you have any family member that have been exposed they typically will start to show symptoms in 48-72 hours. I am going to prescribe you Tamiflu - which has to be started within 48 hours to be effective. If it is started after that time it typically can cause GI symptoms. If family member show symptoms, remember that treatment has to be started within 48 hours. You are considered contagious for 5 Days after the start of the fever. You should isolate and not go to work, sports, events during this quarantine period. The following are my recommenda tions to help with your symptoms while your body fights this infection: 1. Take Ibuprofen or Tylenol if you do not have any allergies to these medication s. If you take a blood thinner you should not take NSAIDS like Ibuprofen. These medication will help with the inflammati on in your respirator y tract which should help the cough. 2. Do not take any decongesta nts at this time because this will dry out that tract too much. If you have a lot of nasal congestion you can try nasal decongesta nts, but I would not take them more than 5 days. 3. Use a humidifier or add a cup of water by your bed. Sometimes if our sleeping environmen t is too dry this can lead to cough 4. Salt Water Gargles 5. Saline nasal spray is helpful. 6. Would recommend taking a antihistam ine to help with the congestion . 7. Clean Surfaces regularly and try to stay isolated from family members. I would be seen again if you develop any of the following. 1. Cough develops last longer than 3 weeks. 2. Develop shortness of breath or wheezing. 3. Severe Headache with vision changes 4. Stiff Neck 5. Fever does not reduce a few points with Ibuprofen or Tylenol. I would go immediatel y to the Emergency Room if you develop: 1. Chest Pain 2. Severe Shortness of breath 3. Coughing up Blood. Acute bronchitis 0622574 2 J20.9 Health Concerns Section Related Observation LastModified by Organization Detai ls LastModified Time None Recorded Concern Status LastModified by Organization Details LastModified Time None Recorded Advance Directives Directive None Recorded Payers Encounter Date Sequence Insurance Name Policy Number Policy Stallings Covered Member ID Stallings Member ID Guarantor Name 03/10/2021 1 [facility] [id number] Laura Scholpp [id number] Laura Scholpp 04/11/2022 1 [facility] [id number] Laura Scholpp [id number] Laura Scholpp 02/09/2023 1 [facility] CONNECTORCARE TYPE I (HMO) [id number] Laura A Scholpp [id number] Laura Scholpp 06/06/2023 1 [facility] DIRECT CONNE[employer]CARE TYPE I (HMO) [id number] Laura A Scholpp [id number] Laura Scholpp 06/19/2023 1 [facility] CONNECTORCARE TYPE I (HMO) [id number] Laura A Scholpp [id number] Laura Scholpp Notes Date Note Type Note Provider Name and Address Organization Details Recorded Time 2 text/html CoughReported bypatient.source of patient informationInformation obtained from patient; Patient arrived at Urgent Care ambulatory Quality:harsh;productive cough Severity:pain with cough; moderate Duration:constant; symptoms lasting over 2 weeks Timing:constant Associated Symptoms:no fever; no chills; no chest pain; no heartburn; no nausea; no vomiting; no edema; no agitation; no post nasal drip;wheezingNotes:6 weeks of cough and congestion. She saw her PCP who treated her with Amoxicillin. She finished this two weeks ago and symptoms persist. She was given Medrol. Today is her last day and she is not improved. Mago Charles MD [address] [place], [address], [place] - [facility] 04/11/2022 09:10:10 3 text/html KneeReported bypatient.Location:left; right Quality:deep Severity:moderate Duration:8 weeks Timing:cannot identify Alleviating Factors:elevation Aggravating Factors:standing; walking Associated Symptoms:no weakness; no numbness; no tingling; no ecchymosis; no catching/locking; no popping/clicking; no buckling; no grinding; no instability; no drainage; no fever; no chills; no weight loss; no change in bowel/bladder habits;swelling;redness;wa rmth Previous Surgery:none Prior Imaging:none Previous Injections:none Previous PT:none Work Related:no Farnaz Leger MD [address] [place], [address], [employer] [facility] 02/09/2023 15:09:02 4 text/html 63 y/o female here 2 days after falling down the stairs and rolling her L ankle. She was able to walk away, but is currently having significant swelling, bruising, and pain. She used ice immediately after EDGARDO Valentin [address] [place] [place], [address], [employer] PA true[x] [employer] [facility] 06/06/2023 13:14:28 4 text/html CoughReported bypatient.source of patient informationInformation obtained from patient; Patient arrived at Urgent Care ambulatory; learning styles: auditory Quality:harsh;dry; intermittent; symptoms worse with lying down Severity:worsening;pain with cough; moderate Duration:constant; symptoms lasting over 2 weeks Timing:worsening; gradual Context:Patient denies vaping; non-smoker;history of bronchitis Modifying Factors:at night Associated Symptoms:no fever; no chills; no chest pain; no heartburn; no nausea; no vomiting; no edema; no agitation; no wheezing;post nasal drip;hurts to breath Parviz Fowler NP [address] [place], [address], [employer] [facility] 06/19/2023 11:02:45 OBGyn Episode No OBEpisode recorded.
== END 2024-05-29 09:42 | disposition home or self-care (01) ==
PROVIDERS: PCP Internal Medicine; Visit Provider Internal Medicine
DX: Z00.00 Encounter for general adult medical examination without abnormal findings (principal); E78.2 Mixed hyperlipidemia; F33.42 Major depressive disorder, recurrent, in full remission; Z86.0101 Personal history of adenomatous and serrated colon polyps; L71.9 Rosacea, unspecified; N95.1 Menopausal and female climacteric states; E66.3 Overweight; Z23 Encounter for immunization

== ENCOUNTER 2024-09-04 11:01 | Outpatient (REF) | payer MEDICARE, MEDICAID, SELFPAY ==
--- NOTE | ~2024-09-04 | MM_ITS ---
EXAMINATION: DXA BONE DENSITY AXIAL HISTORY: Z12.31 - Encounter for screening mammogram for malignant neoplasm of breast TECHNIQUE: [employer] Dual energy absorptiometry (DEXA) of the lumbar spine, total left hip, and femoral neck was performed. COMPARISON: There are no prior studies for comparison. FINDINGS: The bone mineral density of the lumbar spine is 1.147 with a T-score of -0.3, and a Z-score of 1.1. This is indicative of normal bone mineral density. The bone mineral density of the left total hip is 0.958 with a T-score of -0.4, and a Z-score of 0.7. This is indicative of normal bone mineral density. The bone mineral density of the left femoral neck is 0.819 with a T-score of -1.6, and a Z-score of -0.2. This is indicative of osteopenia. FRACTURE RISK: The FRAX index suggests a risk of major osteoporotic fracture of 11.9%, and of hip fracture 1.5%. MM/XR DEXA axial skeleton IMPRESSION: Based on bone mineral density, and according to World Health Organization (WHO) criteria, the diagnosis is consistent with osteopenia. All bone density values are in grams per centimeter squared (g/cm2). Statistically, 68% of repeat scans fall within 1 SD (+/- 0.010 g/cm2 for AP spine L1-L4) and 1 SD (+/- 0.012 g/cm2 for femur total) FRAX is a trademark of the [employer] [place] for Metabolic Bone Disease, a World Health Organization (WHO) Collaborating Center. Electronically signed by: Jt Key MD 09/04/2024 11:56 AM EDT
--- OUTSIDE RECORDS SUMMARY | 2024-09-04 12:30 | XMS_ITS | Data Portability ---
Author Organization [facility], [address] Address [address] [place] [address] Care Team Providers Care Immigration Case Worker Name Role Phone ANGELY GAN Primary Care Provider [phone] Assessment No assessment recorded. Plan of Treatment Reminders Order Date Submit Date Provider Last Modified By Organization Details Last Modified Time Details Appointments None recorded. Lab rapid flu (A+B) 2023 024 [facility], [address] [place], [address], 4 11:00:40 SARS CoV 2 (COVID-19) Ag, QL, IA, upper respiratory specimen 2023 024 [facility] 20999_[facility], [address] [place], [address], 4 11:00:39 rapid strep group A, throat 2023 024 [facility], [address] [place], [address], 4 11:00:42 streptococc us group A, culture, throat 2023 024 [place] [facility] ([facility], [address] [place] [address], [place], [address], 4 06:08:36 Referral orthopedic surgeon referral 2022 023 [email or web address] Not available 3 10:24:37 Procedures None recorded. Surgeries None recorded. Imaging XR, ankle, 3 or more view - Tenderness over medial malleolus following fall r/o fx 2023 024 [facility], [address] [place], [address], 4 09:24:35 XR, foot, 3 or more view - Further eval on L foot 2023 024 [email or web address] [facility], [address] [place], [address], 4 08:27:48 Medication Orders Tamiflu 75 mg capsule 2023 024 [facility]044[facility], [address] [place] [address], [address], 4 11:00:40 albuterol sulfate HFA 90 mcg/actuati on aerosol inhaler 2023 024 [facility]044[facility], [address] [place] [address], [address], 4 11:00:40 prednisone 20 mg tablet 2023 024 [facility], [address] [place] [address], [address], 4 11:00:41 Allergy Relief (fluticason e) 50 mcg/actuati on nasal spray,suspe nsion 2023 024 [email or web address] [facility] #0447, [address] [place] [address], [address], 4 12:35:15 promethazin e-DM 6.25 mg-15 mg/5 mL oral syrup 2023 024 [facility]044[facility], [address] [place] [address], [address], 4 11:00:40 ketorolac 60 mg/2 mL intramuscul ar solution 2023 024 [email or web address] [facility] [address] [place] [address], [address], 4 09:59:29 naproxen 500 mg tablet 2022 023 [facility] [address] [place] [address], [address], 4 09:43:11 diclofenac 1 % topical gel 2022 023 [email or web address] [facility] [address] [place] [address], [address], 4 09:43:15 doxycycline hyclate 100 mg capsule 2021 023 [facility], [address] [place] [address], [address], 3 09:53:56 prednisone 20 mg tablet 2021 023 [facility], [address] [place] [address], [address], 3 09:53:59 promethazin e-DM 6.25 mg-15 mg/5 mL oral syrup 2021 023 [facility], [address] [place] [address], [address], 3 09:54:08 albuterol sulfate HFA 90 mcg/actuati on aerosol inhaler 2021 022 [facility], [address] [place] [address], [address], 2 08:55:58 Patient TargetsNo targets recorded. Patient Instructions Encounter Date Encounter Id Patient Instructions Last Modified By Organization Details Last Modified Time 04/11/2022 [id number] cough: care instructions [email or web address] Not available 04/11/2022 08:55:54 You should follow-up with your PCP in days, or at any time if your condition does not improve or worsens. Any acute change should prompt a visit to the nearest Emergency Department. [email or web address] 13 Not available 04/11/2022 09:09:45 02/09/2023 [id number] knee pain or injury: care instructions [email or web address] Not available 02/09/2023 10:23:52 06/19/2023 [id number] Patient instruct ed on worsening signs and [...] Range : Negat divya Not Available [facility] ([facility]) [address] [facility], [place], [address], 06/22/2023 06:08:36 06/19/19 24 06/19/2023 SARS CoV 2 (COVI D-19) Ag, QL, IA, upper respi rator y speci men Unknown Analyte negati ve Not Available [address] [place], [address], 06/19/2023 10:39:24 06/19/19 24 06/19/2023 SARS CoV 2 (COVI D-19) Ag, QL, IA, upper respi rator y speci men Unknown Analyte yes Not Available [address] [place], [address], 06/19/2023 10:39:24 06/19/19 24 06/19/2023 rapid strep group A, throa t Unknown Analyte negati ve Not Available [address] [place], [address], 06/19/2023 10:39:35 06/19/19 24 06/19/2023 rapid strep group A, throa t Unknown Analyte yes Not Available [address] [place], [address], 06/19/2023 10:39:35 06/19/19 24 06/19/2023 rapid flu (A+B) Unknown Analyte positi ve Not Available [address] [place], [address], 06/19/2023 10:39:29 06/19/19 24 06/19/2023 rapid flu (A+B) Unknown Analyte negati ve Not Available [address] [place], [address], 06/19/2023 10:39:29 06/19/19 24 06/19/2023 rapid flu (A+B) Unknown Analyte yes Not Available Anand ray [address] [place] [address], [address], 06/19/2023 10:39:29 06/07/19 24 06/06/2023 XR, ankle , 3 or more view No observ ation record ed. [facility] [address] [place], [address], 06/07/2023 09:34:22 Result Notes None recorded. Problems Name Problem SNOMED Code Status Onset Date Resolution Date Notes Provider Name and Address Organization Details Recorded Time Depressive disorder 81663542 Active 2021 ANISHA hansen, PA - [facility] 2 08:35:34 Hyperlipidemia 41278374 Active 2021 ANISHA hansen, PA - [facility] 2 08:35:41 Problem Notes None recorded. Procedures Surgical History None recorded. Imaging Results Imaging Date Name Status LastModified by Organiz ation Details LastModified Time 06/06/2023 XR, ankle, 3 or more view completed [facility] [address] [place], [address], 06/07/2023 09:34:22 Procedure Notes None recorded. Medical [...] Updated DateTime 2 162.56 cm 24.9 kg/m2 57124.8 9 g 8 69 /min 98.1 [degF] [...] Updated DateTime 3 162.56 cm 24.9 kg/m2 86103.8 9 g 7 19 /min 97 % [...] Updated DateTime 4 162.56 cm 27.8 kg/m2 09545.9 6 g 9 18 /min 97.1 [degF] [...] Updated DateTime 4 162.56 cm 27.8 kg/m2 52614.9 6 g 98.2 [degF] 18 /min 98 % 98 % 77 /min 125 mm[Hg] 79 mm[Hg] Velvet Greenberg PA - [facility] 4 10:41:02 Social History Question Answer Notes LastModified by Organizat ion Details LastModified Time Tobacco Smoking Status Never Smoker ALETHA hansen PA - [facility] 02/09/2023 09:54:52 Have You Had A Flu Shot This Season? Yes [email or web address] Information not available 06/19/2023 What Was The Date Of Your Most Recent Tobacco Screening? 06/19/2023 [email or web address] Information not available 06/19/2023 Have You Recently Traveled Abroad? No Information not available 04/11/2022 Are You Currently In School? No Information not available 02/09/2023 Sex: Unknown Functional Status Question Answer Note LastModified by Organizat ion Details LastModified Time Do you use any illicit or recreational drugs? No Information not available 04/11/2022 Do you or have you ever used any other forms of tobacco or nicotine? No Information not available 04/11/2022 What is your level of alcohol consumption? Occasional Information not available 04/11/2022 Are you currently employed? Yes Information not available 02/09/2023 Mental Status None recorded. Family History Relationship [...] 04/11/2022 08:34:24 zoster recombinant 1 completed ANISHA DESMITH null, PA - [...] SNOMED-CT Code Diagnosis ICD10 Code Diagnosis Note [id number] [facility] [address] 03/10/2021 08:12:58 03/10/2021 10:32:16 [id number] 2099Charanjit_Yuly Amaro treet [address] [place] [address] 08/30/2018 11:29:01 08/30/2018 13:03:20 [id number] Mago nguyen MD _[address] [place] [address] 04/11/2022 08:23:20 04/11/2022 09:02:34 Bronchitis 22925572 J40 Increase oral fluids, rest while you are ill, ER if needed for worsening symptoms [id number] [place] Leger [place] [address] [place] [address] 02/09/2023 09:03:21 02/09/2023 10:24:37 Pain of left knee joint [id number] 42015 M25.562 There was no Xray available today.Pain is over 6 weeks and no injury, but will need XraySwelli ng indicates a likely Knee Effusion and will need to see ORTHO Possible Osteoarthr itis, Popliteal cyst with rupture versus meniscal injury.REf erral made to Ortho today [id number] EDGARDO Valentin [address] [place] [address] 06/06/2023 09:25:54 06/06/2023 10:04:10 Injury of left ankle [id number] S99.912A Based on your presentati on and [...] Redness5. Calf Swelling Thank you for using [facility] , please contact our office if you have any questions or concerns. [id number] [place] [address] [place] [address] 06/19/2023 10:30:15 06/19/2023 11:01:57 Exposure to SARS-CoV-2 680076380 Z20.822 Influenza caused by Influenza A virus 372937647 J09.X2 Based on your Presentati on and [...] breath 3. Coughing up Blood. Acute bronchitis 0169556 2 J20.9 Health Concerns Section Related Observation LastModified by Organization Detai ls LastModified Time None Recorded Concern Status LastModified by Organization Details LastModified Time None Recorded Advance Directives Directive None Recorded Payers Insurance Date Sequence Insurance Name Policy Number Policy Stallings Covered Member ID Stallings Member ID Guarantor Name 06/06/2023 1 [facility] [id number] Laura Scholpp [id number] Laura Scholpp 06/06/2023 2 [facility] [id number] Laura A Scholpp [id number] Laura Scholpp 06/19/2023 1 [facility] TYPE I (HMO) [id number] Laura A Scholpp [id number] Laura Scholpp Notes Date Note Type Note [...] is not improved. Mago Charles MD [address] [place], [address], [place] - [facility] 04/11/2022 09:10:10 3 [...] PT:none Work Related:no Farnaz Leger MD [address], [place], [address], [place] - [facility] 02/09/2023 15:09:02 4 text/html 63 y/o female here 2 days after falling down the stairs and rolling her L ankle. She was able to walk away, but is currently having significant swelling, bruising, and pain. She used ice immediately after EDGARDO Valentin [address] [place] [place], [address], PA - [facility] 06/06/2023 13:14:28 4 text/html CoughReported [...] breath Parviz Fowler NP [address] [place], [address], [place] - [facility] 06/19/2023 11:02:45 OBGyn Episode No OBEpisode recorded.
== END 2024-09-04 11:02 | disposition home or self-care (01) ==
LOC: HO.MAMMO 11:01
PROVIDERS: PCP Internal Medicine; Visit Provider Internal Medicine
DX: Z12.31 Encounter for screening mammogram for malignant neoplasm of breast (principal); Z13.820 Encounter for screening for osteoporosis; Z78.0 Asymptomatic menopausal state; Z86.0101 Personal history of adenomatous and serrated colon polyps
CPT/HCPCS: 77063; 77067; 77080

== ENCOUNTER → 2024-09-04 11:30 | Outpatient (BNV) | payer MEDICARE, MEDICAID, SELFPAY | PROVIDERS: PCP Internal Medicine; Visit Provider Radiology Diagnostic Radiology | DX: Z12.31 Encounter for screening mammogram for malignant neoplasm of breast (principal) | CPT/HCPCS: 77063; 77067 ==

== ENCOUNTER 2025-02-19 14:32 | Outpatient (REF) | payer OTHER, SELFPAY ==
[2025-02-19 15:31] LABS: MANUAL DIFF FLAG NO
[2025-02-19 16:09] LABS: Hematocrit 44.8 % (37.0-47.0); Hemoglobin 14.8 g/dl (12.0-16.0); Imm Gran Abs Auto 0.03 X10*3/uL (0.00-0.03); Imm Gran Pct Auto 0.4 % (0.0-0.4); Lymphocytes Absolute Auto 2.5 X10*3/uL (1.2-4.9); Mean Corpuscular HGB Conc 33.0 g/dl (31.0-35.0); Mean Corpuscular Hemoglobin 30.0 pg (27.0-33.0); Mean Corpuscular Volume 90.9 fL (80.0-98.0); NRBC Abs Auto 0.000 X10*3/uL (0.0-0.012); NRBC Pct Auto 0.0 /100WBC (0.0-0.2); Platelet Count 266 X10*3/uL (160-400); Red Blood Count 4.93 X10*6/uL (4.20-5.50); White Blood Count 8.2 X10*3/uL (4.8-10.8)
[2025-02-19 16:47] LABS: Alanine Aminotransferase 35 U/L (0-31); Albumin Level 4.5 g/dL (3.5-5.0); Alkaline Phosphatase 86 U/L (39-117); Anion Gap 12 (12-20); Aspartate Amino Transferase 33 U/L (5-31); Blood Urea Nitrogen 17 mg/dL (9-16); Calcium 8.9 mg/dL (8.4-10.2); Carbon Dioxide 27 mmol/L (22-29); Chloride 106 mmol/L (96-108); Estimated Glomerular Filt Rate 53; Potassium 4.1 mmol/L (3.3-5.1); Sodium 141 mmol/L (135-145); Total Protein 7.0 g/dL (6.5-8.0)
== END 2025-02-19 14:33 | disposition home or self-care (01) ==
LOC: HO.LAB 14:32
PROVIDERS: PCP Internal Medicine; Visit Provider Nurse Practitioner
DX: Z01.818 Encounter for other preprocedural examination (principal); K59.00 Constipation, unspecified; R63.5 Abnormal weight gain; R53.83 Other fatigue; Z86.0101 Personal history of adenomatous and serrated colon polyps; Z68.27 Body mass index [BMI] 27.0-27.9, adult
CPT/HCPCS: 36415; 80053; 84443; 85025; 99202

== ENCOUNTER 2025-02-19 14:32 | Outpatient (AMB) | payer MEDICARE, MEDICAID, SELFPAY ==
--- NOTE | 2025-02-19 14:34 | MHC.OFFVIS ---
Vital Signs 02/19/25 14:35 Height 5 ft 4 in Weight 160 lb BMI 27.5 BP 139/66 Blood Pressure Location Lt brachial Position Sitting Intake Visit Reasons: colo rescreen nat 06/2021 Intake Note: Laura presents to in office visit for pre colonoscopy consult. CC: Patient reports her stomach been upset more than usual and constipation. Plate Driller Required: No Accompanied by: Self / Same As Patient Allergies Seasonal Allergies Allergy (Intermediate, Verified 02/19/25 14:39) Congestion No Known Drug Allergies Allergy (Unknown, Verified 02/19/25 14:39) none HPI HPI colo rescreen nat 06/2021: Details: 65-year-old female here for a preprocedural meeting to discuss a screening colonoscopy. She is referred by Adenike Alvarez. PMX High cholesterol Overweight Rosacea History of TA Depression with insomnia * SURGICAL HISTORY Colposcopy Colonoscopy-2021 equals 3 TA is Tubal ligation Nasal septoplasty section * ALLERGIES: NKDA * [facility]: needs refresh TODAY'S VISIT She is having more CIC recently, along with fatigue, wt gain, and dry skin, no recent TSH check; No upper GI problems. There are no prior problems with anesthesia or sedation. No cardiac or respiratory. NO ID problems. There is no known FHX or crc or polyps. She had 3 TA's in 2021. [facility] Medical History (Updated 02/19/25 @ 15:08 by HEATHER Raphael) Vasomotor symptoms due to menopause History of adenomatous polyp of colon Overweight (BMI 25.0-29.9) Vaginal cyst LGSIL (low grade squamous intraepithelial dysplasia) Post-menopause Vitamin D deficiency Mixed dyslipidemia Rosacea Menopausal symptoms Shift work sleep disorder Insomnia Depression Surgical History (Updated 05/29/24 @ 11:01 by Adenike Alvarez MD) History of colposcopy with cervical biopsy Hx of colonoscopy H/O tubal ligation History of nasal septoplasty History of rhinoplasty History of section Family History Father Dementia CVA (cerebral vascular accident) Maternal Grandmother Diabetes mellitus Paternal Grandfather Diabetes mellitus Breast cancer Paternal Grandmother Breast cancer Diabetes mellitus Social History Housing: Apartment Alcohol intake: former Patient Tobacco Use Status: Never used Tobacco e-Cigarette/Vaping Use: Never Used service: No Current occupational status: employed Cognitive needs: No Hearing needs: No Vision needs: No Review of Systems Const Reports fatigue, Denies fever(s), Denies night sweats, Denies poor appetite, Reports weight gain and Denies weight loss ENT Reports Normal hearing present, Denies dental pain, Denies dysphagia, Denies hearing loss, Denies mouth pain, Denies odynophagia, Denies throat swelling, Denies tongue swelling and Reports other (Dentition adequate) Card Reports no additional complaints Resp Reports no additional complaints GI Details: Denies abdominal pain, Denies melena, Denies bloating, Denies hematochezia, Reports constipation, Denies GI cramping, Denies dysphagia, Denies excessive flatus, Denies early satiety, Denies heartburn, Denies diarrhea, Denies nausea, Denies odynophagia, Denies vomiting and Denies hematemesis Skin/Breast Reports dry skin, Denies pruritus, Denies lesions, Denies rash and Denies jaundice Neuro Reports Normal hearing present and Denies Abnormal speech present Endo Reports fatigue Aller/Immun Denies throat swelling and Denies tongue swelling Physical Exam Vital Signs: Last Vital Signs BP 139/66 02/19/25 14:35 BMI result Body Mass Index 27.5 Const General: cooperative, no acute distress, well developed and well groomed Nutritional Appearance: average body habitus and well nourished Orientation/consciousness: oriented to person, oriented to place and oriented to time Limitations: No language barrier HEENT Head: Yes normocephalic and Yes atraumatic Eyes General: appearance normal, both eyes and all related structures Pupils: Equal, round and reactive pupils present Neck Neck: Yes normal visual inspection and Yes no lymphadenopathy Thyroid: Thyroid normal Resp Effort & Inspection: normal respiratory effort and able to speak in complete sentences Auscultation: clear to auscultation bilaterally Cardio Rate: regular rate Rhythm: regular rhythm Heart sounds: Normal, physiologic split S2 sound present Peripheral pulses: radial pulses present and posterior tibial pulses present GI Inspection: No distended and No Abdominal panniculus present Palpation (GI): Soft to palpation, nontender, no guarding, not rigid and No hepatosplenomegaly present Percussion: Yes normal to percussion Auscultation: normal bowel sounds Rectal Exam - Female: deferred Skin General skin exam: no rashes or lesions noted, turgor normal, skin not dry, no jaundice, No spider nevi and no striae Rashes: no rashes Nails: normal Neuro General: oriented to person, oriented to place and oriented to time Cranial nerves: Yes Equal, round and reactive pupils present and Yes Normal hearing present Speech: No Abnormal speech present Extrem General: Yes normal to inspection, No clubbing, No cyanosis and No edema Psych Appearance: grossly normal and well kempt Mental Status: mental status grossly normal Speech and movement: Normal speech and movement present Affect: normal affect Attitude: cooperative Thought process: Normal thought process present and not confabulating Thought content: Normal thought content present Insight: Good insight present (Psych) Judgement: Good judgement present (Psych) Assessment & Plan Assessment & Plan (1) History of adenomatous polyp of colon: Comment: 01/02/[address] Stewart - 2 TA is repeat in 3 years (2023) Code(s): Z86.0101 - Personal history of adenomatous and serrated colon polyps Category: Medical (2) Pre-op examination: Code(s): Z01.818 - Encounter for other preprocedural examination Category: Medical (3) Constipation: Code(s): K59.00 - Constipation, unspecified Category: Medical (4) Weight gain: Code(s): R63.5 - Abnormal weight gain Category: Medical Plan She is having more CIC recently, along with fatigue, wt gain, and dry skin, no recent TSH check; No upper GI problems. There are no prior problems with anesthesia or sedation. No cardiac or respiratory. NO ID problems. There is no known FHX or crc or polyps. She had 3 TA's in 2021. Orders: Orders Comprehensive Met. Panel Today Z01.818 - Encounter for other preprocedural examination, Z86.0101 - Personal history of adenomatous and serrated colon polyps Complete Blood Count Auto Diff Today Z01.818 - Encounter for other preprocedural examination, Z86.0101 - Personal history of adenomatous and serrated colon polyps TSH reflex Free T4 Today K59.00 - Constipation, unspecified, R53.83 - Other fatigue, R63.5 - Abnormal weight gain Referrals GI Procedure Notification Z01.818 - Encounter for other preprocedural examination, Z86.010 - Personal history of adenomatous and serrated colon polyps Medications: New peg 3350-electrolytes 236-22.74-6.74 -5.86 gram (Golytely) until fecal effluent is clear; do not exceed a total volume of 2,000 mL 240 mL PO Q10M 4,000 mL 0RF 1 day Z12.11 - Encounter for screening for malignant neoplasm of colon bisacodyl (Dulcolax (bisacodyl)) 10 mg (2 x 5 mg) PO BEDTIME 4 tabs 0RF 2 days Coding Level of Care Code New Pt Level 3 (68435) Diagnoses History of adenomatous polyp of colon Z86.010 Pre-op examination Z01.818 Constipation K59.00 Weight gain R63.5
[2025-02-19 14:35] VITALS: BP 139/66; BMI 27.5
--- OUTSIDE RECORDS SUMMARY | 2025-02-19 18:58 | XMS_ITS | Data Portability ---
Author Organization EDGARDO Grossman s, [address] Address [address] [place] [address] Care Team Providers Care Tooth Cutter Spur Name Role Phone ANGELY GAN Primary Care Provider [phone] Assessment No assessment recorded. Plan of Treatment Reminders Order Date Submit Date Provider Last Modified By Organization Details Last Modified Time Details Appointments None recorded. Lab rapid flu (A+B) 2023 024 [facility] [address], [address] [place], [address], 4 11:00:40 SARS CoV 2 (COVID-19) Ag, QL, IA, upper respiratory specimen 2023 024 [facility] [address], [address] [place], [address], 4 11:00:39 rapid strep group A, throat 2023 024 [facility] [address], [address] [place], [address], 4 11:00:42 streptococc us group A, culture, throat 2023 024 [place] [facility] ([place]), [address] [place] [address], [place], [address], 4 06:08:36 Referral orthopedic surgeon referral 2022 023 [email or web address] Not available 3 10:24:37 Procedures None recorded. Surgeries None recorded. Imaging XR, ankle, 3 or more view - Tenderness over medial malleolus following fall r/o fx 2023 024 [facility], [address] [place], [address], 4 09:24:35 XR, foot, 3 or more view - Further eval on L foot 2023 024 [email or web address] [facility], [address] [place], [address], 4 08:27:48 Medication Orders Tamiflu 75 mg capsule 2023 024 [facility]0447, [address] [place] [address], [address], 4 11:00:40 albuterol sulfate HFA 90 mcg/actuati on aerosol inhaler 2023 024 [facility]0447, [address] [place], [address], 4 11:00:40 prednisone 20 mg tablet 2023 024 [facility]0447, [address] [place], [address], 4 11:00:41 Allergy Relief (fluticason e) 50 mcg/actuati on nasal spray,suspe nsion 2023 024 [email or web address] [facility] #0447, [address] [place], [address], 4 12:35:15 promethazin e-DM 6.25 mg-15 mg/5 mL oral syrup 2023 024 [facility]0447, [address] [place] [address], [address], 4 11:00:40 ketorolac 60 mg/2 mL intramuscul ar solution 2023 024 [email or web address] [facility] [address] [place] [address], [address], 4 09:59:29 naproxen [address] [facility] [address] [place] [address], [address], 4 09:43:11 diclofenac 1 % topical gel 2022 023 [email or web address] [facility] [address] [place] [address], [address], 4 09:43:15 doxycycline hyclate [address] [facility], [address] [place] [address], [address], 3 09:53:56 prednisone 20 [address] tablet [address] [facility], [address] [place] [address], [address], 3 09:53:59 promethazin e-DM 6.25 mg-15 mg/5 mL oral syrup [address] [facility], [address] [place] [address], [address], 3 09:54:08 albuterol sulfate HFA 90 mcg/actuati on aerosol inhaler [address] [facility], [address] [place] [address], [address], 2 08:55:58 Patient TargetsNo targets recorded. Patient Instructions Encounter Date Encounter Id Patient Instructions Last Modified By Organization Details Last Modified Time 04/11/2022 [id number] cough: care instructions [email or web address] Not available 04/11/2022 08:55:54 You should follow-up with your PCP in days, or at any time if your condition does not improve or worsens. Any acute change should prompt a visit to the nearest Emergency Department. [email or web address] 13 Not available 04/11/2022 09:09:45 02/09/2023 [id number] knee pain or injury: care instructions [email or web address] Not available 02/09/2023 10:23:52 06/19/2023 [id number] Patient instruct ed on worsening signs and [...] Range : Negat divya Not Available [facility] ([facility]) [address] [facility], [place], [address], 06/22/2023 06:08:36 06/19/19 24 06/19/2023 SARS CoV 2 (COVI D-19) Ag, QL, IA, upper respi rator y speci men Unknown Analyte negati ve Not Available [address] [place], [address], 06/19/2023 10:39:24 06/19/19 24 06/19/2023 SARS CoV 2 (COVI D-19) Ag, QL, IA, upper respi rator y speci men Unknown Analyte yes Not Available [address] [place], [address], 06/19/2023 10:39:24 06/19/19 24 06/19/2023 rapid strep group A, throa t Unknown Analyte negati ve Not Available [address] [place], [address], 06/19/2023 10:39:35 06/19/19 24 06/19/2023 rapid strep group A, throa t Unknown Analyte yes Not Available [address] [place], [address], 06/19/2023 10:39:35 06/19/19 24 06/19/2023 rapid flu (A+B) Unknown Analyte positi ve Not Available [address] [place], [address], 06/19/2023 10:39:29 06/19/19 24 06/19/2023 rapid flu (A+B) Unknown Analyte negati ve Not Available [address] [place], [address], 06/19/2023 10:39:29 06/19/19 24 06/19/2023 rapid flu (A+B) Unknown Analyte yes Not Available [address] [place], [address], 06/19/2023 10:39:29 06/07/19 24 06/06/2023 XR, ankle , 3 or more view No observ ation record ed. [facility] [address], [place], [address], 06/07/2023 09:34:22 Result Notes None recorded. Problems Name Problem SNOMED Code Status Onset Date Resolution Date Notes Provider Name and Address Organization Details Recorded Time Depressive disorder 27333689 Active 2021 ANISHA hansen PA - [facility] 2 08:35:34 Hyperlipidemia 72510334 Active 2021 ANISHA hansen PA - [facility] 2 08:35:41 Problem Notes None recorded. Medical Equipment None Reported. [...] blood by Pulse oximetry Heart rate Systolic And Diastolic Provider Name and Address Organization Details Last Updated DateTime 4 162.56 cm 27.8 kg/m2 24089.9 6 g 9 18 /min 97.1 [degF] 97 % 97 % 68 /min 119/80 mm[Hg] JUNIE KWOK PA - [facility] 4 09:45:08 Date Recorded Body height Body mass index (BMI) Body weight Body temperature Respiratory rate Oxygen saturation Oxygen saturation in Arterial blood by Pulse oximetry Heart rate Systolic And Diastolic Provider Name and Address Organization Details Last Updated DateTime 4 162.56 cm 27.8 kg/m2 42834.9 6 g 98.2 [degF] 18 /min 98 % 98 % 77 /min 125/79 mm[Hg] Velvet Greenberg PA - [facility] 4 10:41:02 Date Recorded Body height Body mass index (BMI) Body weight Pain severity - 0-10 verbal numeric rating [Score] - Reported Respiratory rate Oxygen saturation Oxygen saturation in Arterial blood by Pulse oximetry Heart rate Body temperature Systolic And Diastolic Provider Name and Address Organization Details Last Updated DateTime 3 162.56 cm 24.9 kg/m2 22678.8 9 g 7 19 /min 97 % 97 % 81 /min 98.1 [degF] 121/70 mm[Hg] AELTHA VALENTIN PA - [facility] 3 09:56:58 Date Recorded Body height Body mass index (BMI) Body weight Pain severity - 0-10 verbal numeric rating [Score] - Reported Heart rate Body temperature Respiratory rate Oxygen saturation Oxygen saturation in Arterial blood by Pulse oximetry Systolic And Diastolic Provider Name and Address Organization Details Last Updated DateTime 2 162.56 cm 24.9 kg/m2 67634.8 9 g 8 69 /min 98.1 [degF] 20 /min 97 % 97 % 120/75 mm[Hg] ANISHA JUSTIN PA - [facility] 2 08:37:22 Social History Question Answer Notes LastModified by [employer] Details LastModified Time Tobacco Smoking Status Never Smoker ALETHA hansen PA - [facility] 02/09/2023 09:54:52 Have You Had A Flu Shot This Season? Yes Information not available 06/19/2023 What Was The Date Of Your Most Recent Tobacco Screening? 06/19/2023 [email or web address] Information not available 06/19/2023 Have You Recently Traveled Abroad? No Information not available 04/11/2022 Are You Currently In School? No Information not available 02/09/2023 Sex: Unknown Functional Status Question Answer Note LastModified by [employer] Details LastModified Time Do you use any [...] 10:38:05 pneumococcal polysaccharide PPV23 3 completed Velvet Dionicio null, PA - [facility] 06/19/2023 10:38:05 zoster live 0 completed Velvet Greenberg null, PA - [facility] 06/19/2023 10:38:05 Influenza, split virus, quadrivalent, PF 3 completed Velvet Greenberg null, PA - [facility] 06/19/2023 10:38:05 Influenza, split virus, quadrivalent, PF 0 completed ANISHA DESMITH null, PA - [...] Diagnosis SNOMED-CT Code Diagnosis ICD10 Code Diagnosis IMO Codes Diagnosis Note [id number] _[facility] [address] [address] 03/10/2021 08:12:58 03/10/2021 10:32:16 [id number] [facility] [address] [place] [address] 08/30/2018 11:29:01 08/30/2018 13:03:20 [id number] Mago nguyen MD [facility] [address] [place] [address] 04/11/2022 08:23:20 04/11/2022 09:02:34 Bronchitis 59988631 J40 Increase oral fluids, rest while you are ill, ER if needed for worsening symptoms [id number] [place] [address] [place] [address] 02/09/2023 09:03:21 02/09/2023 10:24:37 Pain of left knee joint 0411416690 91438 M25.562 There was no Xray available today.Pain is over 6 weeks and no injury, but will need XraySwelli ashlyn indicates a likely Knee Effusion and will need to see ORTHO Possible Osteoarthr itis, Popliteal cyst with rupture versus meniscal injury.REf erral made to Ortho today [id number] EDGARDO Valentin [address] [place] [address] 06/06/2023 09:25:54 06/06/2023 10:04:10 Injury of left ankle [id number] 1183620 S99.912A Based on your presentati on and [...] Redness5. Calf Swelling Thank you for using [employer] , please contact our office if you have any questions or concerns. [id number] [place] [address] [place] [address] 06/19/2023 10:30:15 06/19/2023 11:01:57 Exposure to SARS-CoV-2 134323128 Z20.822 Influenza caused by Influenza A virus 050659230 J09.X2 Based on your Presentati on and Exam you are being diagnosed with Influenza. Your rapid Flu test was POSITIVE Influenza is caused by a virus that [...] breath 3. Coughing up Blood. Acute bronchitis 7228309 2 J20.9 Health Concerns Section Related Observation LastModified by Organization Hemant darby LastModified Time None Recorded Concern Status LastModified by Organization Details LastModified Time None Recorded Advance Directives Directive None Recorded Payers Insurance Date Sequence Insurance Name Policy Number Policy Stallings Covered Member ID Stallings Member ID Guarantor Name 06/06/2023 1 [facility] [id number] Laura Scholpp 06/06/2023 2 [facility] [id number] Laura Samayoa Scholpp [id number] Laura Scholpp 06/19/2023 1 [facility] TYPE I (HMO) [id number] Laura Samayoa Scholpp [id number] Laura Scholpp Notes Date Note Type Note Provider Name and Address Organization Details Recorded Time 022 text/ht ml CoughReported by PatientHPIFor quality, patient reportsharshandproductive cough. For severity, patient reportspain with coughbut reportsmoderate. For associated symptoms, patient reportswheezingbut reportsno fever,no chills,no chest pain,no heartburn,no nausea,no vomiting,no edema,no agitation, andno post nasal drip. For source of patient information, patient reportsinformation obtained from patientandpatient arrived at urgent care ambulatory. For duration, patient reportsconstantandsymptoms lasting over 2 weeks. For timing, patient reportsconstant.6 weeks of cough and congestion. She saw her PCP who treated her with Amoxicillin. She finished this two weeks ago and symptoms persist. She was given Medrol. Today is her last day and she is not improved. Mago Charles MD [address] [place] [address] [place], [address], PA - [facility] 04/11/2022 09:10:10 023 text/ht ml KneeReported by PatientHPIFor associated symptoms, patient reportsswelling,redness, andwarmthbut reportsno weakness,no numbness,no tingling,no ecchymosis,no catching/locking,no popping/clicking,no buckling,no grinding,no instability,no drainage,no fever,no chills,no weight loss, andno change in bowel/bladder habits. For location, patient reportsleftandright. For quality, patient reportsdeep. For severity, patient reportsmoderate. For duration, patient reports8 weeks. For timing, patient reportscannot identify. For alleviating factors, patient reportselevation. For aggravating factors, patient reportsstandingandwalking. For previous surgery, patient reportsnone. For prior imaging, patient reportsnone. For previous injections, patient reportsnone. For previous pt, patient reportsnone. For work related, patient reportsno. Farnaz Leger MD [address] [place], [address], PA - [facility] 02/09/2023 15:09:02 024 text/ht ml 63 y/o female here 2 days after falling down the stairs and rolling her L ankle. She was able to walk away, but is currently having significant swelling, bruising, and pain. She used ice immediately after EDGARDO Valentin [address] [place], [address], PA - [facility] 06/06/2023 13:14:28 024 text/ht ml CoughReported by PatientHPIFor quality, patient reportsharshanddrybut reportsintermittentandsymptoms worse with lying down. For severity, patient reportsworseningandpain with coughbut reportsmoderate. For timing, patient reportsworseningbut reportsgradual. For context, patient reportshistory of bronchitisbut reportspatient denies vapingandnon-smoker. For associated symptoms, patient reportspost nasal dripandhurts to breathbut reportsno fever,no chills,no chest pain,no heartburn,no nausea,no vomiting,no edema,no agitation, andno wheezing. For source of patient information, patient reportsinformation obtained from patient,patient arrived at urgent care ambulatory, andlearning styles: auditory. For duration, patient reportsconstantandsymptoms lasting over 2 weeks. For modifying factors, patient reportsat night. Parviz Fowler NP [address] [facility] [place], [address], PA - [facility] 06/19/2023 11:02:45 OBGyn Episode No OBEpisode recorded.
--- OUTSIDE RECORDS SUMMARY | 2025-02-19 18:58 | XMS_ITS | Encounter Summary ---
Author Organization [facility] Address [address] [facility] [address] [place] [phone] Phone Care Team Providers Care Seismic Observer Name Role Phone Adenike Alvarez MD Primary Care Provider Encounter Details Date Type Department Care Team (Late st Contact Info) Description 06/06/2023 Ancillary Orders [facility], X-Ray - [facility] [address] [place] [address] Kalyn Jay, EDGARDO [address] [place] [address] [email or web address] Injury, ankle, left, initial encounter (Primary Dx) Social History Tobacco Use Types Packs/Day Years Used Date Smoking Tobacco: Never Smokeless Tobacco: Never Alcohol Use Standard Drinks/Week Comments Yes 5 (1 standard drink = 0.6 oz pur e alcohol) Education Answer Date Recorded Are you interested in more education? Not on valery e 08/20/2022 Are you concerned about learning? Not on file 08/20/2022 No 08/20/2022 No 08/20/2022 Digital Access Answer Date Recorded No 09/18/2022 No 09/18/2022 No 09/18/2022 Reliable internet access at home? Not on file 09/18/2022 Device with a working camera? Not on file Comments Unknown Sex and Gender Information Value Date Recorded Sex Assigned at Female 03/10/2019 10:41 AM EST Legal Sex Female 10:17 AM EST Gender Identity Female 03/10/2019 10:41 AM EST Sexual Orientation Straight 03/10/2019 10 :41 AM EST documented as of this encounter Plan of Treatment Upcoming Encounters Date Type Department Care Team (Late st Contact Info) Description 05/20/2025 3:00 PM EST Office Visit [facility] [address] [place] [address] Jake Montero MD [address] [place] [address] [email or web address] documented as of this encounter Results * XR ANKLE 3 OR MORE VIEWS (LEFT) (06/06/2023 11:36 AM EST) Anatomical Region Laterality Modality Ankle Left Computed Radiogr aphy 06/07/2023 12:4 3 AM EST Impressions 06/07/2023 12:44 AM EST No acute osseous abnormality or significant degenerative change. Narrative 06/07/2023 12:44 AM EST XR ANKLE 3 OR MORE VIEWS (LEFT) Referring clinician's provided indication for this examination in Epic: Pain COMPARISON: None FINDINGS: No acute fracture or dislocation. Osseous alignment within normal limits. Ankle mortise symmetric. No joint effusion. Os peroneus present. Procedure Note Carine Thomas MD - 06/07/2023 XR ANKLE 3 OR MORE VIEWS (LEFT) Referring clinician's provided indication for this examination in Epic:Pain COMPARISON: None FINDINGS: No acute fracture or dislocation. Osseous alignment within normal limits.Ankle mortise symmetric. No joint effusion. Os peroneus present. IMPRESSION: No acute osseous abnormality or significant degenerative change. us Kalyn REYNOSO IMG XR LOWER EXTREMITY Final R esult documented in this encounter Visit Diagnoses Diagnosis Injury, ankle, left, initial encounter- Primary Injury, ankle, left, initial encounter documented in this encounter Care Teams Seismic Observer Relationship Specialty Start Date End Date Adenike Alvarez MD [facility] [place] [place] [address] PCP - General Internal Medicine 02/14/23 documented as of this encounter Additional Source Comments The information contained in this document represents components of the legal health record. It is not the complete legal health record.[facility]
--- OUTSIDE RECORDS SUMMARY | 2025-02-19 18:58 | XMS_ITS | Clinical Summary ---
Author Organization [facility] Address [address] [address] Phone Care Team Providers Care Retail Analytics Manager Name Role Phone Adenike Alvarez MD Primary Care Provider Allergies No known active allergies Medications citalopram (CELEXA) 40 MG tablet Take 40 mg by mouth. 09/23/2020 Active cycloSPORINE (RESTASIS) 0.05 % suspension Place 1 drop into each eye 2 (two) times a day. 09/17/2021 Active PREMPRO 0.45-1.5 mg per tablet Take 1 tablet by mouth daily. 10/13/2021 Active rosuvastatin (CRESTOR) 5 MG tablet Take 5 mg by mouth daily. 11/02/2021 Active Immunizations Immunization Administration Dates Next Due COVID-19 (Pre-02/14) Pfizer Vaccine, mRNA, PF ,07/19/2020 Influenza Quadrivalent Preservative Free IM 12/25 Zoster recombinant 01/14/2020 Family History Relation Status Comments Father Alive Mother Alive Social History Tobacco Use Types Packs/Day Years [...] Orientation Straight 03/10/2019 10 :41 AM EST Last Filed Vital Signs Vital Sign Reading Time Taken Comments Blood Pressure 121/65 11/17/2021 9:14 AM EDT Pulse 69 11/17/2021 9:14 AM EDT Temperature 36.7 C (98 F) 03/10/2019 1:24 PM EST Respiratory Rate 18 03/10/2019 1:24 PM EST Oxygen Saturation 100% 03/10/2019 1:24 PM EST Inhaled Oxygen Concentration - - Weight 69.4 kg (153 lb) 11/17/2021 9:14 AM EDT Height 162.6 cm (5' 4 ) 11/17/2021 9:14 AM EDT Body Mass Index 26.26 11/17/2021 9:14 AM EDT Plan of Treatment Upcoming Encounters Date Type Department Care Team (Late st Contact Info) Description 05/20/2025 3:00 PM EST Office Visit [facility] [place] Pl[facility] Surgery [address] [place] [address] Jake Montero MD [address] [place] [phone] [email or web address] Health Maintenance Due Date Last Done Comments Adult Td,Tdap Booster 1959 LIPID PANEL 1959 DEPRESSION SCREENING 1971 HEPATITIS C SCREENING 1977 MAMMOGRAM 1999 COLOGUARD 01/10/2004 COLONOSCOPY 01/10/2004 COLORECTAL CANCER SCREENING 01/10/2004 FIT TEST 01/10/2004 FOBT 01/10/2004 SIGMOIDOSCOPY 01/10/2004 VIRTUAL COLONOSCOPY 01/10/2004 PNEUMOCOCCAL VACCINES (50+ years) (1 of 1 - PCV) 2009 OSTEOPOROSIS SCREENING INITIAL (ONE-TIME) 01/10/2024 INFLUENZA VACCINE (#1) 2024 , 05/01/2021, 01/14/2020 COVID-19 VACCINE ( season) 2024 02/03/2022, 05/01/2021, 08/10/2020, Additional history exists RSV VACCINE (1 - 1-dose 75+ series) 2034 ZOSTER VACCINES Completed 10/22/2020, 01/14/2020 SMOKING STATUS SCREENING (Once After 26 Yrs) Completed 11/17/2021 HEPATITIS A VACCINES Aged Out No long er eligible based on patient's age to complete this topic HIB VACCINES Aged Out No longer eligi ble based on patient's age to complete this topic MENINGOCOCCAL VACCINES (ACWY) Aged Out No longer eligible based on patient's age to complete this topic MENINGOCOCCAL VACCINES (B) Aged Out N o longer eligible based on patient's age to complete this topic Medical Devices Not on file Insurance [facility] [place] [facility] [place] [facility] [place] [facility] [address] [facility] DIRECT Care Teams Retail Analytics Manager Relationship Specialty Start Date End Date Adenike Alvarez MD [address] [facility] [place] [address] PCP - General Internal Medicine 02/14/23 Additional Source Comments The information contained in this document represents components of the legal health record. It is not the complete legal health record.[facility]
== END 2025-02-19 15:12 | disposition home or self-care (01) ==
LOC: HO.HGI 14:34
PROVIDERS: PCP Internal Medicine; Visit Provider Nurse Practitioner
DX: Z01.818 Encounter for other preprocedural examination (principal); Z12.11 Encounter for screening for malignant neoplasm of colon; Z86.0101 Personal history of adenomatous and serrated colon polyps; K59.04 Chronic idiopathic constipation; R63.5 Abnormal weight gain
CPT/HCPCS: 99203